=== PATIENT | female | born 2000 | race African-American/Black ===

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

== ENCOUNTER 2018-02-25 06:29 | Emergency (ER) | payer MEDICAID ==
[2018-02-25] MEDS ORDERED: METOCLOPRAMIDE HCL 10 MG TABLET PO ONE (06:48)
--- NOTE | 2018-02-25 06:48 | ER Document Report ---
ED General - General Chief Complaint: Nausea/Vomiting Stated Complaint: NAUSEA Time Seen by Provider: 02/25/18 06:43 Mode of Arrival: Ambulatory Information source: Patient, Relative Notes: 17-year-old female history of Tourette's chronic episodes of nausea vomiting presents with complaints of nausea and vomiting. Patient denies any fevers or chills admits to chest pain. Patient has had similar chest pain past. Patient notes that due to her anxiety for which she has not been able to take any medications because it interacts with her Tourette's that she has not slept for 3 days TRAVEL OUTSIDE OF THE [place] IN LAST 30 DAYS: No - HPI Onset: Other - 3 days Onset/Duration: Persistent Quality of pain: Sharp Severity: Mild Pain Level: 1 Associated symptoms: Chest pain, Nausea, Vomiting, Other - insomnia Exacerbated by: Other - anxiety Relieved by: Denies Similar symptoms previously: Yes Recently seen / treated by doctor: Yes - Related Data Allergies/Adverse Reactions: erythromycin base [Erythromycin Base] Allergy (Mild, Verified 07/06/17 11:57) VOMITING amoxicillin trihydrate [From Augmentin] Adverse Reaction (Intermediate, Verified 07/06/17 11:57) numb Potassium Clavulanate * [From Augmentin] Adverse Reaction (Intermediate, Verified 07/06/17 11:57) numb aspirin [Aspirin] Adverse Reaction (Verified 07/06/17 11:57) steroids Allergy (Mild, Uncoded 01/05/15 06:54) rash Past Medical History - Social History Smoking Status: Never Smoker Cigarette use (# per day): No Chew tobacco use (# tins/day): No Smoking Education Provided: No Family History: CAD, COPD, CVA, DM, Hyperlipidemia, Hypertension. denies: Arthritis, Malignancy, Thyroid Disfunction Pulmonary Medical History: Reports: Hx Asthma Neurological Medical History: Reports: Hx Migraine. Denies: Hx Cerebrovascular Accident, Hx Seizures Renal/ Medical History: Denies: Hx Peritoneal Dialysis Musculoskeltal Medical History: Reports Hx Musculoskeletal Deformity Psychiatric Medical History: Reports: Hx Anxiety Past Surgical History: Reports: Hx Breast Surgery - reduction, Hx Tonsillectomy - Immunizations Immunizations up to date: Yes Hx Diphtheria, Pertussis, Tetanus Vaccination: Yes Review of Systems - Review of Systems Notes: REVIEW OF SYSTEMS: CONSTITUTIONAL : Denies fever, chills, or sweats. Denies recent illness. EENT: Denies eye, ear, throat, or mouth pain or symptoms. Denies nasal or sinus congestion or discharge. Denies throat, tongue, or mouth swelling or difficulty swallowing. CARDIOVASCULAR: Admits to sharp chest pains that move around RESPIRATORY: Denies cough, cold, or chest congestion. Denies shortness of breath, difficulty breathing, or wheezing. GASTROINTESTINAL: D admits nausea vomiting GENITOURINARY: Denies difficulty urinating, painful urination, burning, frequency, blood in urine, or discharge. FEMALE GENITOURINARY: Denies vaginal bleeding, heavy or abnormal periods, irregular periods. Denies vaginal discharge or odor. MUSCULOSKELETAL: Denies back or neck pain or stiffness. Denies joint pain or swelling. SKIN: Denies rash, lesions or sores. HEMATOLOGIC : Denies easy bruising or bleeding. LYMPHATIC: Denies swollen, enlarged glands. NEUROLOGICAL: Denies confusion or altered mental status. Denies passing out or loss of consciousness. Denies dizziness or lightheadedness. Denies headache. Denies weakness or paralysis or loss of use of either side. Denies problems with gait or speech. Denies sensory loss, numbness, or tingling. Denies seizures. PSYCHIATRIC: Admits to stress anxiety insomnia. ALL OTHER SYSTEMS REVIEWED AND NEGATIVE. PHYSICAL EXAMINATION: GENERAL: Obese female well-appearing no distress HEAD: Atraumatic, normocephalic. EYES: Pupils equal round and reactive to light, extraocular movements intact, conjunctiva are normal. ENT: Nares patent, oropharynx clear without exudates. Moist mucous membranes. NECK: Normal range of motion, supple without lymphadenopathy LUNGS: Breath sounds clear to auscultation bilaterally and equal. No wheezes rales or rhonchi. HEART: Regular rate and rhythm without murmurs ABDOMEN: Soft, nontender, nondistended abdomen. No guarding, no rebound. No masses appreciated. Female : deferred Musculoskeletal: Normal range of motion, no pitting or edema. No cyanosis. NEUROLOGICAL: Cranial nerves grossly intact. Normal speech, normal gait. Normal sensory, motor exams PSYCH: Anxious SKIN: Warm, Dry, normal turgor, no rashes or lesions noted. Dictation was performed using [employer] voice recognition software Physical Exam - Vital signs Vitals: Temp Pulse Resp BP Pulse Ox 98.3 F 90 18 127/106 H 97 02/25/18 06:38 06/08/18 06:38 02/25/18 06:38 02/25/18 06:38 02/25/18 06:38 Course - Re-evaluation Re-evalutation: 02/25/18 08:20 Patient's presentation most consistent with anxiety and stress reaction. She overall looks well is in no distress 02/25/18 09:27 Mental health evaluate the patient it appears she has run out of her clonidine which she takes daily, ever since she was off the clonidine that when her symptoms started. She did not express this information to me and would have saved quite a large amount of time had I known this After performing a Medical Screening Examination, I estimate there is LOW risk for ACUTE APPENDICITIS, BOWEL OBSTRUCTION, ACUTE CHOLECYSTITIS, PERFORATED DIVERTICULITIS, INCARCERATED HERNIA, PANCREATITIS, PELVIC INFLAMMATORY DISEASE, PERFORATED ULCER, ECTOPIC , or TUBO-OVARIAN ABSCESS, thus I consider the discharge disposition reasonable. Also, there is no evidence or peritonitis , sepsis, or toxicity. I have reevaluated this patient multiple times and no significant life threatening changes are noted. The patient and I have discussed the diagnosis and risks, and we agree with discharging home with close follow-up with the understanding that symptoms and presentations can change. We also discussed returning to the Emergency Department immediately if new or worsening symptoms occur. We have discussed the symptoms which are most concerning (e.g., bloody stool, fever, changing or worsening pain, vomiting) that necessitate immediate return. - Vital Signs Vital signs: Temp Pulse Resp BP Pulse Ox 98.3 F 90 18 127/106 H 97 02/25/18 06:38 02/25/18 06:38 02/25/18 06:38 02/25/18 06:38 02/25/18 06:38 Discharge - Discharge Clinical Impression: Anxiety Nausea & vomiting Qualifiers: Vomiting type: unspecified Vomiting Intractability: non-intractable Qualified Code(s): R11.2 - Nausea with vomiting, unspecified Condition: Stable Disposition: HOME, SELF-CARE Prescriptions: Clonidine HCl [Catapres] 0.1 mg PO DAILY #30 tablet Referrals: DIA FINLEY MD [ACTIVE STAFF] - Follow up as needed
[2018-02-25 08:49] LABS: APPEARANCE,URINE SLIGHTLY-CLOUDY; BILIRUBIN,URINE NEGATIVE (NEGATIVE); COLOR,URINE YELLOW; GLUCOSE, URINE NEGATIVE (NEGATIVE); KETONES,URINE NEGATIVE (NEGATIVE); LEUKOCYTE ESTERASE,URINE NEGATIVE (NEGATIVE); NITRITE,URINE NEGATIVE (NEGATIVE); PROTEIN,URINE NEGATIVE (NEGATIVE); URINE SPECIFIC GRAVITY 1.035; UROBILINOGEN,URINE NEGATIVE mg/dL (<2.0)
[2018-02-25 09:37] VITALS: BP 155/88
--- NOTE | 2018-02-25 21:44 | EKG REPORT ---
SEVERITY:- NORMAL ECG - SINUS RHYTHM : Confirmed by: Lorri Alfaro MD 25-Feb-2018 21:43:58
--- NOTE | 2018-02-26 12:17 | PSYCHOLOGICAL NOTE ---
Psych Note - Psych Note Psych Note: Reason for consult: anxiety Patient's grandmother at bedside per patient's request 17-year-old female history of Tourette's chronic episodes of nausea vomiting presents with complaints of nausea and vomiting. Patient denies any fevers or chills admits to chest pain. Patient has had similar chest pain past. Patient notes that due to her anxiety for which she has not been able to take any medications because it interacts with her Tourette's that she has not slept for 3 days. Patient disclosed that her anxiety has been very bad and she is able to sleep for 3 days. She confirms that she does not take any medication for Tourette's however does take clonidine at night to help her sleep. She reports that she ran out and confirms this coincides with all of her symptoms. Patient denies suicidal ideation. She has never has inpatient psychiatric treatment. Patient is alert and orientated to person, place, time and circumstance. Mood is euthymic with congruent affect patient smiling, laughing and engaging with clinician. Patient denies suicidal and homicidal ideation. Delusions are absent behaviors congruent with intact reality based presentation i.e. organized and linear thought process. Eye contact is well-maintained. Conversational speech was within normal rate, tone and prosody. Intellectual abilities appear to be within average range. Attention and concentration are good. Insight, judgment, impulse control are good. Diagnosis 300.00 (F41.9) unspecified anxiety disorder per history provided by patient 307.23 (F95.2) Tourette's disorder per history provided by patient impression/plan: Patient is cleared from acute psychiatric services. Patient discloses increased anxiety and being unable sleep however upon reflection realizes that coincides with running out of her clonidine. Patient takes clonidine to help her sleep at night. Patient denies suicidal and homicidal ideation behaviors congruent with an intact reality based presentation i.e. organized and linear thought processes. Dr. Martínez was consulted and the care management as patient; attending physician is agreement with her conditions and disposition.
== END 2018-02-25 09:30 | disposition home or self-care (01) ==
LOC: ER 06:29
DX: R11.2 Nausea with vomiting, unspecified (principal); F41.9 Anxiety disorder, unspecified; Z88.3 Allergy status to other anti-infective agents
CPT/HCPCS: 93005; 99285; 81025; 81001; 93010; J3490

== ENCOUNTER 2018-04-08 14:31 | Emergency (ER) | payer MEDICAID ==
[2018-04-08 14:40] VITALS: BP 123/81
--- NOTE | 2018-04-08 14:57 | ER Document Report ---
HPI - HPI Patient complains to provider of: Cough congestion wheeze Onset: Just prior to arrival Onset/Duration: Gradual Pain Level: 3 Context: 17-year-old female with cough and wheeze and congestion for almost 2 weeks. No chest pain or shortness of breath. She has sore throat and has had some fever but none today. Associated Symptoms: None Exacerbated by: Denies Relieved by: Other - Used her grandfathers albuterol nebulizer - ROS ROS below otherwise negative: Yes Systems Reviewed and Negative: Yes All other systems reviewed and negative - REPRODUCTIVE Reproductive: DENIES: : Past Medical History - General Information source: Patient - Social History Smoking Status: Never Smoker Frequency of alcohol use: None Drug Abuse: None Lives with: Family Family History: CAD, COPD, CVA, DM, Hyperlipidemia, Hypertension Pulmonary Medical History: Reports: Hx Asthma Neurological Medical History: Reports: Hx Migraine Renal/ Medical History: Denies: Hx Peritoneal Dialysis Musculoskeletal Medical History: Reports Hx Musculoskeletal Deformity Psychiatric Medical History: Reports: Hx Anxiety Past Surgical History: Reports: Hx Breast Surgery - reduction, Hx Tonsillectomy - Immunizations Immunizations up to date: Yes Hx Diphtheria, Pertussis, Tetanus Vaccination: Yes Vertical Provider Document - CONSTITUTIONAL Agree With Documented VS: Yes Exam Limitations: No Limitations General Appearance: No Apparent Distress Notes: Morbidly obese - INFECTION CONTROL TRAVEL OUTSIDE OF THE [place] IN LAST 30 DAYS: No - HEENT HEENT: Normocephalic, Pharyngeal Erythema. negative: Conjuctival Injection, Tympanic Membrane Red, Tympanic Membrane Bulging - NECK Neck: Supple. negative: Lymphadenopathy-Left, Lymphadenopathy-Right - RESPIRATORY Respiratory: No Respiratory Distress, Wheezing - Faint X laboratory wheeze bilateral with forced expiration - CARDIOVASCULAR Cardiovascular: Regular Rate, Regular Rhythm - GI/ABDOMEN Gastrointestinal: Abdomen Soft, Abdomen Non-Tender - NEURO Level of Consciousness: Alert - DERM Integumentary: No Rash Course - Vital Signs Vital signs: Temp Pulse Resp BP Pulse Ox 98.5 F 99 H 18 123/81 97 04/08/18 14:38 04/08/18 14:38 04/08/18 14:38 04/08/18 14:38 04/08/18 14:38 Discharge - Discharge Clinical Impression: Bronchitis Condition: Good Disposition: HOME, SELF-CARE Instructions: Antibiotic Therapy ([facility]), Bronchitis With Bronchospasm (Wheezing ) ([facility]), Inhaled Bronchodilators ([facility]) Additional Instructions: Drink plenty of fluids Use the metered-dose inhaler 2 puffs every 3 hours or the nebulizer 4 times a day during this illness See your doctor for follow-up Return to the emergency room if worsening symptoms Prescriptions: Albuterol Sulfate [Ventolin 0.083% Neb 2.5 mg/3 mL Ampul] 2.5 mg NEB Q3HP PRN # 25 vial PRN Reason: Albuterol Sulfate [Proair HFA Inhalation Aerosol 8.5 gm MDI] 2 puff IH Q3HP PRN #1 [id number] PRN Reason: Cefdinir [Omnicef 300 mg Capsule] 1 cap PO BID #20 capsule Referrals: MARTHA PIPER DO [NO LOCAL MD] - Follow up as needed
== END 2018-04-08 15:12 | disposition home or self-care (01) ==
LOC: ER 14:31
DX: J45.909 Unspecified asthma, uncomplicated (principal); R05 Cough; J02.9 Acute pharyngitis, unspecified
CPT/HCPCS: 99283

== ENCOUNTER 2018-05-31 07:20 | Emergency (ER) | payer MEDICAID ==
[2018-05-31 07:25] VITALS: BP 118/74
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
== END 2018-05-31 09:28 | disposition home or self-care (01) ==
LOC: ER 07:20
DX: J02.9 Acute pharyngitis, unspecified (principal); J45.909 Unspecified asthma, uncomplicated; Z88.1 Allergy status to other antibiotic agents; Z88.8 Allergy status to other drugs, medicaments and biological substances
CPT/HCPCS: 87070; 87880; 99283

== ENCOUNTER 2018-06-07 22:42 | Emergency (ER) | payer MEDICAID ==
[2018-06-07 22:48] VITALS: BP 141/77
--- NOTE | 2018-06-07 23:59 | ER Document Report ---
ED Medical Screen (RME) - General Chief Complaint: Ankle Pain Stated Complaint: HEADACHE Time Seen by Provider: 06/07/18 23:58 Mode of Arrival: Wheelchair Information source: Patient Notes: 17-year-old female presented to ED for multiple complaints. She states she has had vaginal bleeding for a month and it is not resolving. She states she has had a constant migraine for 2-3 weeks. She states she has a history of asthma and anxiety and has had chest discomfort for about 2 weeks. She states she was running and tripped and fell 2 days ago and not felt right since. Patient is alert and oriented respirations regular and on labored. She states she has a history of Tourette's and has had a tick for about a month now. I have greeted and performed a rapid initial assessment of this patient. A comprehensive ED assessment and evaluation of the patient, analysis of test results and completion of medical decision making process will be conducted by an additional ED providers. TRAVEL OUTSIDE OF THE [place] IN LAST 30 DAYS: No - Related Data Allergies/Adverse Reactions: erythromycin base [Erythromycin Base] Allergy (Mild, Verified 05/31/18 07:21) VOMITING amoxicillin trihydrate [From Augmentin] Adverse Reaction (Intermediate, Verified 05/31/18 07:21) numb Potassium Clavulanate * [From Augmentin] Adverse Reaction (Intermediate, Verified 05/31/18 07:21) numb aspirin [Aspirin] Adverse Reaction (Verified 05/31/18 07:21) steroids Allergy (Mild, Uncoded 05/31/18 07:21) rash Past Medical History Pulmonary Medical History: Reports: Hx Asthma Neurological Medical History: Reports: Hx Migraine. Denies: Hx Cerebrovascular Accident, Hx Seizures Renal/ Medical History: Denies: Hx Peritoneal Dialysis Musculoskeltal Medical History: Reports Hx Musculoskeletal Deformity Psychiatric Medical History: Reports: Hx Anxiety Past Surgical History: Reports: Hx Breast Surgery - reduction, Hx Tonsillectomy - Immunizations Immunizations up to date: Yes Hx Diphtheria, Pertussis, Tetanus Vaccination: Yes Physical Exam - Vital signs Vitals: Temp Pulse Resp BP Pulse Ox 98.9 F 93 H 20 141/77 H 97 06/07/18 22:42 06/07/18 22:42 06/07/18 22:42 06/07/18 22:42 06/07/18 22:42 Course - Vital Signs Vital signs: Temp Pulse Resp BP Pulse Ox 98.9 F 93 H 20 141/77 H 97 06/07/18 22:42 06/07/18 22:42 06/07/18 22:42 06/07/18 22:42 06/07/18 22:42
[2018-06-08 00:48] LABS: ABSOLUTE EOSINOPHILS # (AUTO) 0.1 10^3/uL (0.0-0.6); ABSOLUTE LYMPHOCYTES (AUTO) 2.9 10^3/uL (0.5-4.7); ABSOLUTE MONOCYTES (AUTO) 0.4 10^3/uL (0.1-1.4); ABSOLUTE NEUT (AUTO) 4.5 10^3/uL (1.7-8.2); BASOPHILS % (AUTO) 0.5 % (0-2); EOSINOPHILS % (AUTO) 1.5 % (0-6); HEMATOCRIT 39.9 % (36.0-47.0); HEMOGLOBIN 13.5 g/dL (12.0-15.5); LYMPHOCYTES % (AUTO) 35.9 % (13-45); MEAN CORPUSCULAR HEMOGLOBIN 28.3 pg (27.0-33.4); MEAN CORPUSCULAR HGB CONC 33.8 g/dL (32.0-36.0); MEAN CORPUSCULAR VOLUME 84 fl (80-97); MONOCYTES % (AUTO) 5.6 % (3-13); PLATELET COUNT 430 10^3/uL (150-450); RED BLOOD COUNT 4.77 10^6/uL (3.72-5.28); RED CELL DISTRIBUTION WIDTH 13.4 % (11.5-14.0); SEGMENTED NEUTROPHILS % (AUTO) 56.5 % (42-78); TOTAL CELLS COUNTED % (AUTO) 100 %
== END 2018-06-08 04:00 | disposition left against medical advice (07) ==
LOC: ER 22:42
DX: G43.909 Migraine, unspecified, not intractable, without status migrainosus (principal); N93.9 Abnormal uterine and vaginal bleeding, unspecified; J45.909 Unspecified asthma, uncomplicated; Z88.1 Allergy status to other antibiotic agents; Z88.6 Allergy status to analgesic agent; Z53.20 Procedure and treatment not carried out because of patient's decision for unspecified reasons
CPT/HCPCS: 36415; 81025; 85025; 99281

== ENCOUNTER 2018-07-03 08:25 | Emergency (ER) | payer MEDICAID ==
--- NOTE | 2018-07-03 09:13 | ER Document Report ---
ED Medical Screen (RME) - General Chief Complaint: Vaginal Bleeding Stated Complaint: VAGINAL BLEEDING, ABDOMINAL PAIN Notes: Patient is a 17-year-old female that presents to the emergency department for chief complaint of vaginal bleeding. Patient reports is been having this bleeding for about 3 months now. She is on the Depo-Provera shot, which she received on May 17, but she was having bleeding prior to that. She states that it is heavy bleeding on a daily basis and she did not have this issue in the past. She has had some lightheadedness, but no syncope, admits to nausea but no vomiting. Denies urinary symptoms. She is not due for her next echo shot until next month. She saw her PCP over the course of last week, without any treatment, and that is why she came today. ROS: GENERAL: Denies fever or chills CV: Denies chest pain PHYSICAL EXAMINATION: Vital signs reviewed. GENERAL: Well-appearing, well-nourished and in no acute distress. HEAD: Atraumatic, normocephalic. EYES: Pupils equal round extraocular movements intact, conjunctiva are normal. ENT: Nares patent NECK: Normal range of motion CV: Heart regular rate and rhythm LUNGS: No respiratory distress Musculoskeletal: Normal range of motion NEUROLOGICAL: Normal speech PSYCH: Normal mood, normal affect. MDM: Patient seen and examined for rapid initial assessment. Vital signs reviewed. A comprehensive ED assessment and evaluation of the patient, analysis of test results and completion of the medical decision making process will be conducted by additional ED providers. *Note is created using voice recognition software and may contain spelling, syntax or grammatical errors. TRAVEL OUTSIDE OF THE [place] IN LAST 30 DAYS: No - Related Data Allergies/Adverse Reactions: erythromycin base [Erythromycin Base] Allergy (Mild, Verified 05/31/18 07:21) VOMITING amoxicillin trihydrate [From Augmentin] Adverse Reaction (Intermediate, Verified 05/31/18 07:21) numb Potassium Clavulanate * [From Augmentin] Adverse Reaction (Intermediate, Verified 05/31/18 07:21) numb aspirin [Aspirin] Adverse Reaction (Verified 05/31/18 07:21) steroids Allergy (Mild, Uncoded 05/31/18 07:21) rash Past Medical History Pulmonary Medical History: Reports: Hx Asthma Neurological Medical History: Reports: Hx Migraine. Denies: Hx Cerebrovascular Accident, Hx Seizures Renal/ Medical History: Denies: Hx Peritoneal Dialysis Musculoskeltal Medical History: Reports Hx Musculoskeletal Deformity Psychiatric Medical History: Reports: Hx Anxiety Past Surgical History: Reports: Hx Breast Surgery - reduction, Hx Tonsillectomy - Immunizations Immunizations up to date: Yes Hx Diphtheria, Pertussis, Tetanus Vaccination: Yes Physical Exam - Vital signs Vitals: Temp Pulse Resp BP Pulse Ox 98.6 F 70 18 127/57 H 98 07/03/18 08:52 07/03/18 08:52 07/03/18 08:52 07/03/18 08:52 07/03/18 08:52 Course - Vital Signs Vital signs: Temp Pulse Resp BP Pulse Ox 98.6 F 70 18 127/57 H 98 07/03/18 08:52 07/03/18 08:52 07/03/18 08:52 07/03/18 08:52 07/03/18 08:52
[2018-07-03 09:53] LABS: ABSOLUTE EOSINOPHILS # (AUTO) 0.2 10^3/uL (0.0-0.6); ABSOLUTE LYMPHOCYTES (AUTO) 2.8 10^3/uL (0.5-4.7); ABSOLUTE MONOCYTES (AUTO) 0.3 10^3/uL (0.1-1.4); ABSOLUTE NEUT (AUTO) 2.4 10^3/uL (1.7-8.2); BASOPHILS % (AUTO) 0.4 % (0-2); EOSINOPHILS % (AUTO) 3.5 % (0-6); HEMATOCRIT 38.2 % (36.0-47.0); HEMOGLOBIN 12.9 g/dL (12.0-15.5); LYMPHOCYTES % (AUTO) 48.8 % (13-45); MEAN CORPUSCULAR HEMOGLOBIN 28.6 pg (27.0-33.4); MEAN CORPUSCULAR HGB CONC 33.7 g/dL (32.0-36.0); MEAN CORPUSCULAR VOLUME 85 fl (80-97); MONOCYTES % (AUTO) 5.9 % (3-13); PLATELET COUNT 393 10^3/uL (150-450); RED BLOOD COUNT 4.51 10^6/uL (3.72-5.28); RED CELL DISTRIBUTION WIDTH 13.7 % (11.5-14.0); SEGMENTED NEUTROPHILS % (AUTO) 41.4 % (42-78); TOTAL CELLS COUNTED % (AUTO) 100 %; WHITE BLOOD COUNT 5.8 10^3/uL (4.0-10.5)
[2018-07-03 10:03] LABS: APPEARANCE,URINE SLIGHTLY-CLOUDY; BILIRUBIN,URINE NEGATIVE (NEGATIVE); COLOR,URINE YELLOW; GLUCOSE, URINE NEGATIVE (NEGATIVE); KETONES,URINE NEGATIVE (NEGATIVE); LEUKOCYTE ESTERASE,URINE NEGATIVE (NEGATIVE); NITRITE,URINE NEGATIVE (NEGATIVE); PROTEIN,URINE NEGATIVE (NEGATIVE); URINE SPECIFIC GRAVITY 1.013; UROBILINOGEN,URINE NEGATIVE mg/dL (<2.0)
[2018-07-03 10:20] LABS: ALANINE AMINOTRANSFERASE 25 U/L (5-35); ALBUMIN 4.1 g/dL (3.7-5.6); ALKALINE PHOSPHATASE 53 U/L (50-135); ANION GAP 11 (5-19); ASPARTATE AMINO TRANSFERASE 21 U/L (5-30); BILIRUBIN,DIRECT 0.1 mg/dL (0.0-0.4); BILIRUBIN,TOTAL 0.5 mg/dL (0.2-1.3); BLOOD UREA NITROGEN 6 mg/dL (7-20); CALCIUM 9.6 mg/dL (8.4-10.2); CARBON DIOXIDE 22 mmol/L (22-30); CHLORIDE 108 mmol/L (98-107); GLUCOSE 106 mg/dL (75-110); POTASSIUM 4.3 mmol/L (3.6-5.0); SODIUM 140.6 mmol/L (137-145); TOTAL PROTEIN 7.4 g/dL (6.3-8.2)
[2018-07-03 10:23] LABS: BACTERIA (WET MOUNT) 3+ BACTERIA SEEN; EPITHELIALS (WET MOUNT) 3+ EPITHELIALS SEEN; RBCS (WET MOUNT) RARE RBCS SEEN; T.VAGINALIS (WET MOUNT) NO TRICHOMONAS SEEN; WBCS (WET MOUNT) 2+ WBCS SEEN; YEAST (WET MOUNT) NO YEAST SEEN
[2018-07-03] MEDS ORDERED: IBUPROFEN 800 MG TABLET PO ONE (10:25)
--- NOTE | 2018-07-03 10:27 | ER Document Report ---
ED GI/ - General Chief Complaint: Vaginal Bleeding Stated Complaint: VAGINAL BLEEDING, ABDOMINAL PAIN Time Seen by Provider: 07/03/18 09:27 Mode of Arrival: Ambulatory Information source: Patient Notes: Patient presents complaining of a 3-month history of daily vaginal bleeding. Patient states that the bleeding is light during the day and increases during the evening time. Patient states she does have occasional thoughts. Patient does report nausea but denies any vomiting. Patient denies any syncope or lightheadedness. Patient has seen her primary doctor twice for the same complaint recently. TRAVEL OUTSIDE OF THE [place] IN LAST 30 DAYS: No - HPI Patient complains to provider of: Vaginal bleeding. No: Vomiting Timing/Duration: Persistent Quality of pain: No pain Vaginal bleeding (Compared to normal period): Similar Menstrual period history: denies: Sexual history: Inactive Associated symptoms: denies: Dysuria, Fever, Nausea, Urinary hesitancy, Urinary frequency, Urinary retention, Vaginal discharge, Vomiting Exacerbated by: Denies Relieved by: Denies Similar symptoms previously: Yes Recently seen / treated by doctor: Yes - Related Data Allergies/Adverse Reactions: erythromycin base [Erythromycin Base] Allergy (Mild, Verified 05/31/18 07:21) VOMITING amoxicillin trihydrate [From Augmentin] Adverse Reaction (Intermediate, Verified 05/31/18 07:21) numb Potassium Clavulanate * [From Augmentin] Adverse Reaction (Intermediate, Verified 05/31/18 07:21) numb aspirin [Aspirin] Adverse Reaction (Verified 05/31/18 07:21) steroids Allergy (Mild, Uncoded 05/31/18 07:21) rash Past Medical History - General Information source: Patient - Social History Smoking Status: Never Smoker Frequency of alcohol use: None Drug Abuse: None Occupation: None Lives with: Family Family History: CAD, COPD, CVA, DM, Hyperlipidemia, Hypertension Patient has suicidal ideation: No Patient has homicidal ideation: No Pulmonary Medical History: Reports: Hx Asthma Neurological Medical History: Reports: Hx Migraine. Denies: Hx Cerebrovascular Accident, Hx Seizures Renal/ Medical History: Denies: Hx Peritoneal Dialysis Musculoskeletal Medical History: Reports Hx Musculoskeletal Deformity Psychiatric Medical History: Reports: Hx Anxiety, Other - Tourette's Past Surgical History: Reports: Hx Breast Surgery - reduction, Hx Tonsillectomy - Immunizations Immunizations up to date: Yes Hx Diphtheria, Pertussis, Tetanus Vaccination: Yes Review of Systems - Review of Systems Constitutional: No symptoms reported. denies: Fever, Recent illness EENT: No symptoms reported Cardiovascular: No symptoms reported. denies: Dizziness, Lightheaded Respiratory: No symptoms reported. denies: Cough Gastrointestinal: No symptoms reported. denies: Nausea, Vomiting Genitourinary: No symptoms reported. denies: Dysuria Female Genitourinary: Vaginal bleeding. denies: , Vaginal discharge Musculoskeletal: No symptoms reported. denies: Back pain Skin: No symptoms reported Hematologic/Lymphatic: No symptoms reported Neurological/Psychological: No symptoms reported Physical Exam - Vital signs Vitals: Temp Pulse Resp BP Pulse Ox 98.6 F 70 18 127/57 H 98 07/03/18 08:52 07/03/18 08:52 07/03/18 08:52 07/03/18 08:52 07/03/18 08:52 - General General appearance: Appears well, Alert In distress: None - HEENT Head: Normocephalic, Atraumatic Eyes: Normal Conjunctiva: Normal Nasal: Normal Mouth/Lips: Normal Mucous membranes: Normal Neck: Normal, Supple. No: Lymphadenopathy - Respiratory Respiratory status: No respiratory distress Chest status: Nontender Breath sounds: Normal. No: Rales, Rhonchi, Stridor, Wheezing Chest palpation: Normal - Cardiovascular Rhythm: Regular Heart sounds: S1 appreciated, S2 appreciated Murmur: No - Abdominal Inspection: Morbidly Obese Distension: No distension Bowel sounds: Normal Tenderness: Nontender Organomegaly: No organomegaly - Genitourinary External exam: Normal Speculum exam: Cervix closed Vaginal bleeding: Mild - old appearing brown colored blood - Back Back: Normal, Nontender. No: CVA tenderness - Extremities General upper extremity: Normal inspection, Normal strength General lower extremity: Normal inspection, Normal strength - Neurological Neuro grossly intact: Yes Cognition: Normal [place] Coma Scale Eye Opening: Spontaneous [place] Coma Scale Verbal: Oriented Abby Coma Scale Motor: Obeys Commands [place] Coma Scale Total: 15 - Psychological Associated symptoms: Normal affect, Normal mood - Skin Skin Temperature: Warm Skin Moisture: Dry Skin Color: Normal Course - Re-evaluation Re-evalutation: 07/03/18 11:45 Patient hemodynamically stable without any evidence of anemia. Patient with no heavy active bleeding. Only old appearing blood noted on pelvic examination. Will start patient on naproxen and encourage outpatient follow-up with a minilab operator for further evaluation of irregular vaginal bleeding. - Vital Signs Vital signs: Temp Pulse Resp BP Pulse Ox 98.5 F 69 18 107/51 L 98 07/03/18 11:57 07/03/18 11:57 07/03/18 11:57 07/03/18 11:57 07/03/18 11:57 - Laboratory Result Diagrams: 07/03/18 09:33 07/03/18 09:33 Laboratory results interpreted by me: 07/03/18 07/03/18 07/03/18 09:25 09:33 09:33 Seg Neutrophils % 41.4 L Lymphocytes % 48.8 H Chloride 108 H BUN 6 L Urine Blood MODERATE H 07/03/18 11:45 Labs- Entire Visit 07/03/18 07/03/18 07/03/18 09:25 09:33 09:33 WBC 5.8 RBC 4.51 Hgb 12.9 Hct 38.2 MCV 85 MCH 28.6 MCHC 33.7 RDW 13.7 Plt Count 393 Seg Neutrophils % 41.4 L Lymphocytes % 48.8 H Monocytes % 5.9 Eosinophils % 3.5 Basophils % 0.4 Absolute Neutrophils 2.4 Absolute Lymphocytes 2.8 Absolute Monocytes 0.3 Absolute Eosinophils 0.2 Absolute Basophils 0.0 Sodium 140.6 Potassium 4.3 Chloride 108 H Carbon Dioxide 22 Anion Gap 11 BUN 6 L Creatinine 0.80 Est GFR ( Amer) > 60 Est GFR (Non-Af Amer) > 60 Glucose 106 Calcium 9.6 Total Bilirubin 0.5 Direct Bilirubin 0.1 Neonat Total Bilirubin Not Reportable Neonat Direct Bilirubin Not Reportable Neonat Indirect Bili Not Reportable AST 21 ALT 25 Alkaline Phosphatase 53 Total Protein 7.4 Albumin 4.1 Urine Color YELLOW Urine Appearance SLIGHTLY-CLOUDY Urine pH 5.0 Ur Specific [place] 1.013 Urine Protein NEGATIVE Urine Glucose (UA) NEGATIVE Urine Ketones NEGATIVE Urine Blood MODERATE H Urine Nitrite NEGATIVE Urine Bilirubin NEGATIVE Urine Urobilinogen NEGATIVE Ur Leukocyte Esterase NEGATIVE Urine WBC (Auto) 1 Urine RBC (Auto) 1 Squamous Epi Cells Auto 2 Urine Mucus (Auto) RARE Urine Ascorbic Acid NEGATIVE Urine HCG, Qual NEGATIVE Epi Cells (Wet Prep) Bacteria (Wet Prep) Trichomonas (Wet Prep) Vaginal WBC Vaginal RBC Vaginal Yeast 07/03/18 10:10 WBC RBC Hgb Hct MCV MCH MCHC RDW Plt Count Seg Neutrophils % Lymphocytes % Monocytes % Eosinophils % Basophils % Absolute Neutrophils Absolute Lymphocytes Absolute Monocytes Absolute Eosinophils Absolute Basophils Sodium Potassium Chloride Carbon Dioxide Anion Gap BUN Creatinine Est GFR ( Amer) Est GFR (Non-Af Amer) Glucose Calcium Total Bilirubin Direct Bilirubin Neonat Total Bilirubin Neonat Direct Bilirubin Neonat Indirect Bili AST ALT Alkaline Phosphatase Total Protein Albumin Urine Color Urine Appearance Urine pH Ur Specific [place] Urine Protein Urine Glucose (UA) Urine Ketones Urine Blood Urine Nitrite Urine Bilirubin Urine Urobilinogen Ur Leukocyte Esterase Urine WBC (Auto) Urine RBC (Auto) Squamous Epi Cells Auto Urine Mucus (Auto) Urine Ascorbic Acid Urine HCG, Qual Epi Cells (Wet Prep) 3+ EPITHELIALS SEEN Bacteria (Wet Prep) 3+ BACTERIA SEEN Trichomonas (Wet Prep) NO TRICHOMONAS SEEN Vaginal WBC 2+ WBCS SEEN Vaginal RBC RARE RBCS SEEN Vaginal Yeast NO YEAST SEEN - Diagnostic Test Radiology reviewed: Reports reviewed Discharge - Discharge Clinical Impression: Vagina bleeding Condition: Stable Disposition: HOME, SELF-CARE Instructions: Anti-Inflammatory Medication ([facility]), Vaginal Bleeding ([facility]) Additional Instructions: Return immediately for any new or worsening symptoms Followup with your primary care provider, call tomorrow to make a followup appointment Follow-up with minilab operator for further evaluation of vaginal bleeding Prescriptions: Naproxen [Naprosyn 250 Nmg Tablet] 1 tab PO BID #14 tablet Referrals: [facility] [Provider Group] - Follow up in 3-5 days
--- NOTE | 2018-07-03 11:29 | RADIOLOGY REPORT (SQ) ---
EXAM DESCRIPTION: U/S NON OB PEL TV W/DOPPLER COMPLETED DATE/TIME: 07/03/2018 11:05 am REASON FOR STUDY: vaginal bleeding COMPARISON: None. TECHNIQUE: Dynamic and static grayscale images acquired of the pelvis via transabdominal approach an d recorded on PACS. Additional selected color Doppler and spectral images recorded. LIMITATIONS: Body habitus and overlying bowel gas. FINDINGS: UTERUS: Contour normal. No mass. ENDOMETRIAL STRIPE: No focal or generalized thickening. No masses. CERVIX: No nabothian cysts. RIGHT OVARY AND DOPPLER: Normal size. No worrisome masses. Normal arterial vascular flow without evid ence for torsion. LEFT OVARY AND DOPPLER: Ovary not visualized. FREE FLUID: None noted. OTHER: No other significant finding. MEASUREMENTS: UTERUS: 6.0 x 3.5 x 4.5 cm ENDOMETRIAL STRIPE: 3 mm RIGHT OVARY: 3.1 x 3.1 x 2.4 cm LEFT OVARY: Not visualized. IMPRESSION: NORMAL PELVIC ULTRASOUND BY TRANSABDOMINAL TECHNIQUE. TECHNICAL DOCUMENTATION: JOB ID: [id number] [employer]- All Rights Reserved Rev Reading location - IP/workstation name: [email or web address]
[2018-07-03 11:54] LABS: CHLAM PCR NOT DETECTED (NOT DETECT); GON PCR NOT DETECTED (NOT DETECT)
[2018-07-03 11:58] VITALS: BP 107/51
== END 2018-07-03 12:00 | disposition home or self-care (01) ==
LOC: ER 08:25
DX: N93.9 Abnormal uterine and vaginal bleeding, unspecified (principal); R11.0 Nausea; J45.909 Unspecified asthma, uncomplicated
CPT/HCPCS: 99284; 36415; 87210; 85025; 81025; 80053; 81001; 87491; 87591; 76830; 93976; J3490

== ENCOUNTER 2018-09-01 16:10 | Emergency (ER) | payer MEDICAID ==
--- NOTE | 2018-09-01 17:38 | ER Document Report ---
ED Flu Like - General Chief Complaint: Flu Symptoms Stated Complaint: FLU LIKE SYMPTOMS Time Seen by Provider: 09/01/18 17:22 Mode of Arrival: Ambulatory Information source: Patient Notes: 18-year-old female presented to ED for cough cold congestion body aches nausea with vomiting states she has had intermittent fevers for 3 months. States she was seen here 3 months ago for similar symptoms and did not get any treatment. While patient states she is not able to keep anything down she is drinking a Dr. Pepper and a Pepsi both. Patient stated that this she does not smoke cigarettes or drink alcohol but she does use pot for her Tourette's syndrome as she was told in [place] that it would help her symptoms. She states she also has a history of anxiety depression and bipolar. She also states that she has asthma and has been using her neb treatments and inhaler all day. Patient states she is not eating due to the nausea and she has not been able to sleep. TRAVEL OUTSIDE OF THE [place] IN LAST 30 DAYS: No - HPI Onset: Other - 3 months Timing/Duration: Intermittent Quality of pain: Achy Severity: Moderate Pain Level: 2 CO exposure: No Associated symptoms: Body/muscle aches, Chills, Nonproductive cough, Fever, Nausea, Vomiting, Rhinnorhea, Sinus pain/drainage, Shortness of breath, Sore throat Similar symptoms previously: Yes Recently seen / treated by doctor: Yes - Related Data Allergies/Adverse Reactions: erythromycin base [Erythromycin Base] Allergy (Mild, Verified 09/01/18 16:16) VOMITING amoxicillin trihydrate [From Augmentin] Adverse Reaction (Intermediate, Verified 09/01/18 16:16) numb Potassium Clavulanate * [From Augmentin] Adverse Reaction (Intermediate, Verified 09/01/18 16:16) numb aspirin [Aspirin] Adverse Reaction (Verified 09/01/18 16:16) steroids Allergy (Mild, Uncoded 09/01/18 16:16) rash Past Medical History - General Information source: Patient - Social History Smoking Status: Never Smoker Cigarette use (# per day): No Chew tobacco use (# tins/day): No Smoking Education Provided: No Frequency of alcohol use: None Drug Abuse: Marijuana Lives with: Grandparent(s) Family History: CAD, COPD, CVA, DM, Hyperlipidemia, Hypertension Patient has suicidal ideation: No Patient has homicidal ideation: No - Past Medical History Cardiac Medical History: Reports: None Pulmonary Medical History: Reports: Hx Asthma EENT Medical History: Reports: None Neurological Medical History: Reports: Hx Migraine Endocrine Medical History: Reports: None Renal/ Medical History: Reports: None Malignancy Medical History: Reports: None GI Medical History: Reports: None Skin Medical History: Reports None Psychiatric Medical History: Reports: Hx Anxiety, Hx Bipolar Disorder, Hx Depression, Other - Tourette's Traumatic Medical History: Reports: None Infectious Medical History: Reports: None Past Surgical History: Reports: Hx Breast Surgery - reduction, Hx Nose Surgery - Sinus surgery, Hx Tonsillectomy - Immunizations Immunizations up to date: Yes Hx Diphtheria, Pertussis, Tetanus Vaccination: Yes Review of Systems - Review of Systems Constitutional: Chills, Fever, Recent illness EENT: Nose congestion, Nose discharge, Sinus pressure, Sinus discharge, Throat pain Respiratory: Cough, Wheezing Gastrointestinal: Nausea, Vomiting Genitourinary: No symptoms reported Female Genitourinary: No symptoms reported Musculoskeletal: Other - Body aches Skin: No symptoms reported Hematologic/Lymphatic: No symptoms reported Neurological/Psychological: No symptoms reported -: Yes All other systems reviewed and negative Physical Exam - Vital signs Vitals: Temp Pulse Resp BP Pulse Ox 99.3 F 110 H 20 146/74 H 98 09/01/18 16:19 09/01/18 16:19 09/01/18 16:19 09/01/18 16:19 09/01/18 16:19 Interpretation: Normal - General General appearance: Appears well, Alert - HEENT Head: Normocephalic, Atraumatic Eyes: Normal Pupils: PERRL Ears: Normal External canal: Normal Tympanic membrane: Normal Nasal: Purulent discharge, Swelling Mouth/Lips: Normal Mucous membranes: Normal, Moist Pharynx: Post nasal drainage. No: Erythema, Exudate, Peritonsillar abscess, Retropharyngeal abscess, Tonsillar hypertrophy, Uvular edema, Potential airway comprom. Neck: Normal - Respiratory Respiratory status: No respiratory distress Chest status: Nontender Breath sounds: Normal, Nonproductive cough. No: Rales, Rhonchi, Stridor, Wheezing Chest palpation: Normal - Cardiovascular Rhythm: Regular Heart sounds: Normal auscultation Murmur: No - Abdominal Inspection: Normal Distension: No distension Bowel sounds: Normal Tenderness: Nontender Organomegaly: No organomegaly - Back Back: Normal, Nontender - Extremities General upper extremity: Normal inspection, Nontender, Normal color, Normal ROM , Normal temperature General lower extremity: Normal inspection, Nontender, Normal color, Normal ROM , Normal temperature, Normal weight bearing. No: Emeli's sign - Neurological Neuro grossly intact: Yes Cognition: Normal Orientation: AAOx4 [place] Coma Scale Eye Opening: Spontaneous Abby Coma Scale Verbal: Oriented [place] Coma Scale Motor: Obeys Commands [place] Coma Scale Total: 15 Speech: Normal Motor strength normal: LUE, RUE, LLE, RLE Sensory: Normal - Psychological Associated symptoms: Normal affect, Normal mood - Skin Skin Temperature: Warm Skin Moisture: Dry Skin Color: Normal Course - Re-evaluation Re-evalutation: 09/01/18 21:21 Assessment consistent with an upper respiratory infection. Patient states she has had nausea and vomiting off and on for 3 months as well as body aches cough congestion intermittent fevers. Patient states she has been using her nebulizer and inhaler today. After performing a Medical Screening Examination, I estimate there is LOW risk for ACUTE CORONARY SYNDROME, RESPIRATORY FAILURE, SEPSIS OR MENINGITIS, thus I consider the discharge disposition reasonable. I have reevaluated this patient multiple times and no significant life threatening changes are noted. The patient and I have discussed the diagnosis and risks, and we agree with discharging home with close follow-up. We also discussed returning to the Emergency Department immediately if new or worsening symptoms occur. We have discussed the symptoms which are most concerning (e.g., changing or worsening pain, trouble swallowing or breathing, neck stiffness, fever) that necessitate immediate return. - Vital Signs Vital signs: Temp Pulse Resp BP Pulse Ox 100.6 F H 104 H 20 142/88 H 98 09/01/18 19:11 09/01/18 19:11 09/01/18 16:19 09/01/18 19:11 09/01/18 19:11 - Laboratory Laboratory results interpreted by me: 09/01/18 16:58 Urine Blood SMALL H - Diagnostic Test Radiology reviewed: Image reviewed, Reports reviewed Discharge - Discharge Clinical Impression: URI (upper respiratory infection) Qualifiers: URI type: unspecified URI Qualified Code(s): J06.9 - Acute upper respiratory infection, unspecified Nausea & vomiting Qualifiers: Vomiting type: unspecified Vomiting Intractability: non-intractable Qualified Code(s): R11.2 - Nausea with vomiting, unspecified Condition: Stable Disposition: HOME, SELF-CARE Additional Instructions: UPPER RESPIRATORY ILLNESS: You have a viral infection of the respiratory passages -- a "cold." This common infection causes nasal congestion, drainage, and often sore throat and cough. It is highly contagious. The disease usually lasts about 10 to 14 days. There is no "cure" for the viral infection -- it must run its course. If there is a complication, such as bacterial infection in the nose, sinuses, middle ear, or bronchial tubes, antibiotics may be required. The antibiotics won't affect the virus. Drink plenty of fluids. A humidifier may help. An expectorant medication or decongestant may make you more comfortable. Use acetaminophen or ibuprofen for fever or aches. See the doctor if fever persists over two days, if there is any significant worsening of your symptoms, or if you simply fail to improve as expected. Vomiting Vomiting can be part of many illnesses. Most cases of vomiting are due to gastroenteritis, usually a viral infection in the intestinal tract. There is no specific treatment. The disease will end by itself. For now, the main danger to your child is dehydration. During the first few hours of the illness, give clear liquids, such as Pedialyte. Try to give small quantities frequently, such as a teaspoon of liquid every minute or about an ounce of fluids every five to ten minutes. Medications may be prescribed by the physician for special cases. After an hour or two of fluids without vomiting, add rice cereal, toast, applesauce, or bananas and other more solid foods to the clear liquids. Call the physician or go to the hospital if vomiting increases or blood appears in the bowel movement or vomitus; if your child fails to improve, or if signs of dehydration occur (no wet diapers for eight to twelve hours, tongue and mouth become dry, not acting as alert as usual). Antinausea Medication You have been given a medication to suppress nausea and vomiting. This type of medication can be given as a shot, pill, or suppository. It will usually last for many hours. Pills and shots usually last six to eight hours, suppositories last about 12 hours. For the typical illness, only one or two doses of the medication may be necessary. Mild lightheadedness may occur. This type of medicine can cause drowsiness. Do not drive or operate dangerous machinery while under its influence. Do not mix with alcohol. See your doctor at once if you have muscle spasms or tightness, or uncontrollable motions (particularly of the neck, mouth, or jaw). Persistent vomiting or severe lightheadedness should also be evaluated by the physician. Please try Flonase nasal spray which is [id number] use as according to the box instructions. You can also gargle with warm salt and soda solution for your sore throat. Your body aches you can use Tylenol or Motrin which is over- the-counter. I have written a prescription for some nausea medicine for your nausea and vomiting. And you will need to follow-up with your primary care doctor in the next 3-5 days if your symptoms continue. USE OF ACETAMINOPHEN (Tylenol): Acetaminophen may be taken for pain relief or fever control. It's much safer than aspirin, offering a wider range of "safe" dosages. It is safe during . Some brand names are Tylenol, Panadol, Datril, Anacin 3, Tempra, and Liquiprin. Acetaminophen can be repeated every four hours. The following are maximum recommended dosages: >89 pounds or adults 650 mg to 900 mg Acetaminophen can be repeated every four hours. Maximum dose not to exceed 4000 mg a day. SMOKING: I know you said you do not smoke cigarettes but there is something that you smoke that is also affecting your lungs. If you smoke, you should stop smoking. The tar and chemicals in cigarette smoke are harmful. Smoking has been shown to cause: emphysema chronic bronchitis lung cancer mouth and throat cancer stomach and pancreas cancer premature aging defects In addition, smoking increases ear and lung infections in children of smokers. FOLLOW-UP CARE: If you have been referred to a physician for follow-up care, call the physician s office for an appointment as you were instructed or within the next two days. If you experience worsening or a significant change in your symptoms, notify the physician immediately or return to the Emergency Department at any time for re-evaluation. Prescriptions: Ondansetron [Zofran Odt 4 mg Tablet] 1 tab PO Q6H #15 tab.rapdis Forms: Elevated Blood Pressure, Smoking Cessation Education Referrals: EPPERLY,FÉLIX T, MD [Primary Care Provider] - Follow up in 3-5 days
--- NOTE | 2018-09-01 18:14 | RADIOLOGY REPORT (SQ) ---
EXAM DESCRIPTION: CHEST 2 VIEWS COMPLETED DATE/TIME: 09/01/2018 6:06 pm REASON FOR STUDY: cough congestion COMPARISON: 10/02/2017 EXAM PARAMETERS: NUMBER OF VIEWS: two views TECHNIQUE: Digital Frontal and Lateral radiographic views of the chest acquired. RADIATION DOSE: NA LIMITATIONS: none FINDINGS: LUNGS AND PLEURA: No opacities, masses or pneumothorax. No pleural effusion. MEDIASTINUM AND HILAR STRUCTURES: No masses or contour abnormalities. HEART AND VASCULAR STRUCTURES: Heart normal size. No evidence for failure. BONES: No acute findings. HARDWARE: None in the chest. OTHER: No other significant finding. IMPRESSION: NO ACUTE RADIOGRAPHIC FINDING IN THE CHEST. TECHNICAL DOCUMENTATION: JOB ID: [id number] [employer]- All Rights Reserved Reading location - IP/workstation name: [email or web address]
[2018-09-01 18:36] LABS: APPEARANCE,URINE SLIGHTLY-CLOUDY; BILIRUBIN,URINE NEGATIVE (NEGATIVE); COLOR,URINE YELLOW; GLUCOSE, URINE NEGATIVE (NEGATIVE); KETONES,URINE NEGATIVE (NEGATIVE); LEUKOCYTE ESTERASE,URINE NEGATIVE (NEGATIVE); NITRITE,URINE NEGATIVE (NEGATIVE); PROTEIN,URINE NEGATIVE (NEGATIVE); URINE SPECIFIC GRAVITY 1.015; UROBILINOGEN,URINE NEGATIVE mg/dL (<2.0)
[2018-09-01] MEDS ORDERED: ACETAMINOPHEN 325 MG TABLET PO ONE (19:10)
[2018-09-01 19:41] VITALS: BP 142/88
== END 2018-09-01 19:43 | disposition home or self-care (01) ==
LOC: ER 16:10
DX: J06.9 Acute upper respiratory infection, unspecified (principal); R11.2 Nausea with vomiting, unspecified; R05 Cough; M79.10 Myalgia, unspecified site; R50.9 Fever, unspecified; J34.89 Other specified disorders of nose and nasal sinuses; R06.02 Shortness of breath; R09.81 Nasal congestion; R09.82 Postnasal drip; J02.9 Acute pharyngitis, unspecified; J45.909 Unspecified asthma, uncomplicated; F12.10 Cannabis abuse, uncomplicated; Z88.1 Allergy status to other antibiotic agents; Z88.8 Allergy status to other drugs, medicaments and biological substances
CPT/HCPCS: 99284; 81001; 71046; J3490

== ENCOUNTER 2018-10-08 12:59 | Emergency (ER) | payer MEDICAID ==
[2018-10-08 13:17] VITALS: BP 150/77
[2018-10-08] MEDS ORDERED: ACETAMINOPHEN 325 MG TABLET PO ONE (14:09)
[2018-10-08] MEDS ORDERED: IBUPROFEN 600 MG TABLET PO ONE (14:09)
[2018-10-08 14:57] LABS: A TYPE INFLUENZA AG NEGATIVE (NEGATIVE); B INFLUENZA AG NEGATIVE (NEGATIVE)
--- NOTE | 2018-10-08 15:20 | ER Document Report ---
ED General - General Chief Complaint: Pain All Over Stated Complaint: BODY PAIN Time Seen by Provider: 10/08/18 13:53 Notes: Patient is a 18-year-old female who presents to the emergency department with a chief complaint of body aches for the past week. 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 She has been taken Motrin and Tylenol at home, but only once or twice a day. She also states that she has some family members that have been diagnosed with the flu. She does complain of rhinorrhea and cough that started a few days ago. She denies a productive cough. She denies any vomiting, diarrhea, or nausea. TRAVEL OUTSIDE OF THE [place] IN LAST 30 DAYS: No - Related Data Allergies/Adverse Reactions: erythromycin base [Erythromycin Base] Allergy (Mild, Verified 09/01/18 16:16) VOMITING amoxicillin trihydrate [From Augmentin] Adverse Reaction (Intermediate, Verified 09/01/18 16:16) numb Potassium Clavulanate * [From Augmentin] Adverse Reaction (Intermediate, Verified 09/01/18 16:16) numb aspirin [Aspirin] Adverse Reaction (Verified 09/01/18 16:16) steroids Allergy (Mild, Uncoded 09/01/18 16:16) rash Past Medical History - Social History Smoking Status: Never Smoker Chew tobacco use (# tins/day): No Frequency of alcohol use: None Drug Abuse: None Family History: CAD, COPD, CVA, DM, Hyperlipidemia, Hypertension Patient has suicidal ideation: No Patient has homicidal ideation: No Pulmonary Medical History: Reports: Hx Asthma Neurological Medical History: Reports: Hx Migraine. Denies: Hx Cerebrovascular Accident, Hx Seizures Renal/ Medical History: Denies: Hx Peritoneal Dialysis Musculoskeletal Medical History: Reports Hx Musculoskeletal Deformity Psychiatric Medical History: Reports: Hx Anxiety, Hx Bipolar Disorder, Hx Depression Past Surgical History: Reports: Hx Breast Surgery - reduction, Hx Nose Surgery - Sinus surgery, Hx Tonsillectomy - Immunizations Immunizations up to date: Yes Hx Diphtheria, Pertussis, Tetanus Vaccination: Yes Review of Systems - Review of Systems Notes: REVIEW OF SYSTEMS: CONSTITUTIONAL : Denies recent illness. Denies recent unintentional weight loss. Denies fever, chills, or sweats. EENT: See HPI CARDIOVASCULAR: Denies chest pain. RESPIRATORY: Denies shortness of breath, cough, congestion, difficulty breathing, or wheezing. GASTROINTESTINAL: Denies nausea, vomiting, and diarrhea. Denies abdominal pain. Denies constipation. GENITOURINARY: Denies difficulty urinating, burning, blood in urine, urgency or frequency. MUSCULOSKELETAL: Denies neck and back pain. Denies joint pain or swelling. SKIN: Denies rash, itchiness, or lesions HEMATOLOGIC : Denies easy bruising or bleeding. LYMPHATIC: Denies swollen, painful, enlarged glands. NEUROLOGICAL: Denies no numbness or tingling denies weakness. Denies headache. Denies altered mental status. Denies alteration in speech. PSYCHIATRIC: Denies stress, anxiety, alteration in sleep patterns, or depression. All other systems reviewed and negative. Physical Exam - Vital signs Vitals: Temp Pulse Resp BP Pulse Ox 98.1 F 72 18 150/77 H 97 10/08/18 13:15 10/08/18 13:15 10/08/18 13:15 10/08/18 13:15 10/08/18 13:15 - Notes Notes: PHYSICAL EXAMINATION: GENERAL: Appears well, healthy, well-nourished, no acute distress. HEAD: Normocephalic, atraumatic. EYES: PERRL, conjunctiva normal, all extraocular movements intact, sclera nonicteric ENT: Moist mucous membranes. Rhinorrhea noted. NECK: Supple, no noticeable swelling, redness, rash. Normal range of motion. LUNGS: Equal breath sounds bilaterally and clear to auscultation. No wheezes rales or rhonchi. CARDIOVASCULAR: S1-S2, regular rate, regular rhythm. Radial pulses 2+, normal. ABDOMEN: Normoactive bowel sounds. Soft, nontender, no guarding, no rebound tenderness, and no masses palpated. EXTREMITIES: Normal strength and range of motion, no pitting or edema. No cyanosis. NEUROLOGICAL: Moves all extremities upon command. Strength 5/5 in all extremities. PSYCH: Normal mood, normal affect. SKIN: Warm, dry. No rash, lesions, ulcerations noted. Normal skin turgor. Course - Re-evaluation Re-evalutation: Based off patient's history and physical exam, she will be given Motrin Tylenol for pain control and an influenza screen will be sent. She will also be tested for influenza. I do not suspect the patient has pneumonia, or any life- threatening etiology at this time. The patient is influenza screen is negative. I suspect her body aches are due to her being more physically active and she is not physically active on a normal basis. 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 She will start on cetirizine to help with her rhinorrhea. Verbal discharge instructions were given to the patient. They verbalized understanding. They are stable for discharge. - Vital Signs Vital signs: Temp Pulse Resp BP Pulse Ox 98.2 F 75 16 150/77 H 97 10/08/18 15:32 10/08/18 15:32 10/08/18 15:32 10/08/18 15:32 10/08/18 15:32 Discharge - Discharge Clinical Impression: Body aches, Rhinorrhea, Cough Condition: Stable Disposition: HOME, SELF-CARE Additional Instructions: You were seen today in the emergency department for body aches and flulike symptoms. Your lab results show that you do not have the flu. You may have an upper respiratory viral infection causing your symptoms. Viruses can last 7-10 days. Your body aches are also most likely due to you increasing her activity by working. You may take ibuprofen 600 mg and Tylenol 1000 mg every 6 hours as needed for the pain. You may take cetirizine 10 mg daily for your runny nose and cough. If you feel like your symptoms are getting worse, develop a fever greater than 100.4 F, have worsening symptoms, please return to the emergency department.
== END 2018-10-08 15:32 | disposition home or self-care (01) ==
LOC: ER 12:59
DX: R52 Pain, unspecified (principal); J34.89 Other specified disorders of nose and nasal sinuses; R05 Cough; J45.909 Unspecified asthma, uncomplicated; Z20.828 Contact with and (suspected) exposure to other viral communicable diseases; Z88.1 Allergy status to other antibiotic agents; Z88.8 Allergy status to other drugs, medicaments and biological substances
CPT/HCPCS: 99283; 87804; J3490 ×2

== ENCOUNTER 2018-12-26 08:39 | Emergency (ER) | payer MEDICAID ==
[2018-12-26 08:54] VITALS: BP 136/83
--- NOTE | 2018-12-26 09:00 | ER Document Report ---
ED Respiratory Problem - General Chief Complaint: Cold Symptoms Stated Complaint: FLU LIKE SYMPTOMS Time Seen by Provider: 12/26/18 08:59 Mode of Arrival: Ambulatory Information source: Patient Notes: 18-year-old female presents to ED for complaint of cough cold congestion for 2-3 weeks. She states she started with a sinus infection and took antibiotics for then she developed a cold cough. She states she is been to her PCM who told her she had a viral infection. She has cough cold congestion and generalized body aches. She is alert oriented respirations regular and unlabored speaking in full sentences walking with a even steady gait. TRAVEL OUTSIDE OF THE [place] IN LAST 30 DAYS: No - HPI Onset: Other - 2-3 weeks Duration: Continuous Initiating Event: URI Quality of pain: Achy Severity: Moderate Pain Level: 4 Cough: Nonproductive Sputum amount: None Associated symptoms: Congestion, Cough, PND, Runny nose, Sinus pain/pressure Similar symptoms previously: Yes Recently seen / treated by doctor: No - Related Data Allergies/Adverse Reactions: erythromycin base [Erythromycin Base] Allergy (Mild, Verified 12/26/18 08:47) VOMITING amoxicillin trihydrate [From Augmentin] Adverse Reaction (Intermediate, Verified 12/26/18 08:47) numb Potassium Clavulanate * [From Augmentin] Adverse Reaction (Intermediate, Verified 12/26/18 08:47) numb aspirin [Aspirin] Adverse Reaction (Verified 12/26/18 08:47) steroids Allergy (Mild, Uncoded 12/26/18 08:47) rash Past Medical History - General Information source: Patient - Social History Smoking Status: Never Smoker Frequency of alcohol use: None Drug Abuse: None Lives with: Family Family History: CAD, COPD, CVA, DM, Hyperlipidemia, Hypertension Patient has suicidal ideation: No Patient has homicidal ideation: No Pulmonary Medical History: Reports: Hx Asthma EENT Medical History: Reports: None Neurological Medical History: Reports: Hx Migraine Endocrine Medical History: Reports: None Renal/ Medical History: Reports: None Malignancy Medical History: Reports: None GI Medical History: Reports: None Musculoskeletal Medical History: Reports Hx Musculoskeletal Deformity Skin Medical History: Reports None Psychiatric Medical History: Reports: Hx Anxiety, Hx Bipolar Disorder, Hx Depression Traumatic Medical History: Reports: None Infectious Medical History: Reports: None Past Surgical History: Reports: Hx Breast Surgery - reduction, Hx Nose Surgery - Sinus surgery, Hx Tonsillectomy - Immunizations Immunizations up to date: Yes Hx Diphtheria, Pertussis, Tetanus Vaccination: Yes Review of Systems - Review of Systems Constitutional: Recent illness EENT: Nose congestion, Nose discharge, Sinus pressure, Sinus discharge, Throat pain Cardiovascular: No symptoms reported Respiratory: Cough Gastrointestinal: No symptoms reported Genitourinary: No symptoms reported Female Genitourinary: No symptoms reported Musculoskeletal: No symptoms reported Skin: No symptoms reported Hematologic/Lymphatic: No symptoms reported Neurological/Psychological: No symptoms reported -: Yes All other systems reviewed and negative Physical Exam - Vital signs Vitals: Temp Pulse Resp BP Pulse Ox 98.0 F 84 16 136/83 H 97 12/26/18 08:53 12/26/18 08:53 12/26/18 08:53 12/26/18 08:53 12/26/18 08:53 Interpretation: Normal - General General appearance: Appears well, Alert - HEENT Head: Normocephalic, Atraumatic Eyes: Normal Pupils: PERRL Ears: Normal External canal: Normal Tympanic membrane: Normal Sinus: Normal Nasal: Purulent discharge, Swelling Mouth/Lips: Normal Mucous membranes: Normal Pharynx: Post nasal drainage Neck: Normal - Respiratory Respiratory status: No respiratory distress Chest status: Nontender Breath sounds: Nonproductive cough Chest palpation: Normal - Cardiovascular Rhythm: Regular Heart sounds: Normal auscultation Murmur: No - Abdominal Inspection: Normal Distension: No distension Bowel sounds: Normal Tenderness: Nontender Organomegaly: No organomegaly - Back Back: Normal, Nontender - Extremities General upper extremity: Normal inspection, Nontender, Normal color, Normal ROM, Normal temperature General lower extremity: Normal inspection, Nontender, Normal color, Normal ROM, Normal temperature, Normal weight bearing. No: Emeli's sign - Neurological Neuro grossly intact: Yes Cognition: Normal Orientation: AAOx4 Fields Coma Scale Eye Opening: Spontaneous Fields Coma Scale Verbal: Oriented Abby Coma Scale Motor: Obeys Commands Fields Coma Scale Total: 15 Speech: Normal Motor strength normal: LUE, RUE, LLE, RLE Sensory: Normal - Psychological Associated symptoms: Normal affect, Normal mood - Skin Skin Temperature: Warm Skin Moisture: Dry Skin Color: Normal Course - Re-evaluation Re-evalutation: 12/26/18 09:14 After performing a Medical Screening Examination, I estimate there is LOW risk for ACUTE CORONARY SYNDROME, RESPIRATORY FAILURE, SEPSIS OR MENINGITIS, thus I consider the discharge disposition reasonable. I have reevaluated this patient multiple times and no significant life threatening changes are noted. The patient and I have discussed the diagnosis and risks, and we agree with discharging home with close follow-up. We also discussed returning to the Emergency Department immediately if new or worsening symptoms occur. We have discussed the symptoms which are most concerning (e.g., changing or worsening pain, trouble swallowing or breathing, neck stiffness, fever) that necessitate immediate return. - Vital Signs Vital signs: Temp Pulse Resp BP Pulse Ox 98.0 F 84 16 136/83 H 97 12/26/18 08:53 12/26/18 08:53 12/26/18 08:53 12/26/18 08:53 12/26/18 08:53 Discharge - Discharge Clinical Impression: URI (upper respiratory infection) Qualifiers: URI type: unspecified viral URI Qualified Code(s): J06.9 - Acute upper respiratory infection, unspecified Condition: Stable Disposition: HOME, SELF-CARE Instructions: Family Physicians / Practices Additional Instructions: UPPER RESPIRATORY ILLNESS: You have a viral infection of the respiratory passages -- a "cold." This common infection causes nasal congestion, drainage, and often sore throat and cough. It is highly contagious. The disease usually lasts about 10 to 14 days. There is no "cure" for the viral infection -- it must run its course. If there is a complication, such as bacterial infection in the nose, sinuses, middle ear, or bronchial tubes, antibiotics may be required. The antibiotics won't affect the virus. Drink plenty of fluids. A humidifier may help. An expectorant medication or decongestant may make you more comfortable. Use acetaminophen or ibuprofen for fever or aches. See the doctor if fever persists over two days, if there is any significant worsening of your symptoms, or if you simply fail to improve as expected. COUGH-SUPPRESSANT & EXPECTORANT MEDICATION: You are to use a cough medication as needed for relief of symptoms. This medicine is a combination of an expectorant (to make the mucous thinner and more easily "coughed up") and a cough suppressant (to reduce the frequency of coughing). The cough-suppressant medicine is related to narcotics. You may experience mild nausea and sleepiness. Some patients who are very sensitive to narcotics may have stomach pain from this medicine. Taking the medicine with food reduces these side effects. Do not drive or work with machinery until you know how this medicine affects you. The expectorant should have no side effects. Iodine-containing expectorants (such as organidin) should not be taken by persons with active thyroid disease unless approved by your doctor. Call the doctor if you develop shortness of breath, hives, rash, itching, lightheadedness, or severe nausea and vomiting. USE OF ACETAMINOPHEN (Tylenol): Acetaminophen may be taken for pain relief or fever control. It's much safer than aspirin, offering a wider range of "safe" dosages. It is safe during . Some brand names are Tylenol, Panadol, Datril, Anacin 3, Tempra, and Liquiprin. Acetaminophen can be repeated every four hours. The following are maximum recommended dosages: >89 pounds or adults 650 mg to 900 mg Acetaminophen can be repeated every four hours. Maximum dose not to exceed 4000 mg a day. Thanks they can help your cough cold congestion symptoms are Claritin 10 mg, Sudafed 30 mg, you get that across the counter at the drugstore. Mucinex 600 mg, Tylenol 650, Flonase nasal spray, salt and soda solution gargles to remove the drainage from the back your throat. Salt and soda solution gargle 1 quart of water 1 tablespoon of salt 1 teaspoon of baking soda Mixed 3 ingredients together and boil for 1 minute Placed in a covered quart jar Use 1/2 ounce of cold solution to gargle 3 times a day FOLLOW-UP CARE: If you have been referred to a physician for follow-up care, call the physicians office for an appointment as you were instructed or within the next two days. If you experience worsening or a significant change in your symptoms, notify the physician immediately or return to the Emergency Department at any time for re-evaluation. Forms: Elevated Blood Pressure, Return to School
== END 2018-12-26 09:20 | disposition home or self-care (01) ==
LOC: ER 08:39
DX: J06.9 Acute upper respiratory infection, unspecified (principal); B97.89 Other viral agents as the cause of diseases classified elsewhere; R05 Cough; R09.82 Postnasal drip; R09.81 Nasal congestion; R07.0 Pain in throat; J34.89 Other specified disorders of nose and nasal sinuses; J45.909 Unspecified asthma, uncomplicated; Z88.1 Allergy status to other antibiotic agents; Z88.0 Allergy status to penicillin; Z88.8 Allergy status to other drugs, medicaments and biological substances
CPT/HCPCS: 99283

== ENCOUNTER 2019-06-21 14:19 | Emergency (ER) | payer MEDICAID ==
--- NOTE | 2019-06-21 14:56 | ER Document Report ---
HPI - HPI Patient complains to provider of: sinus pain, chest pain Time Seen by Provider: 06/21/19 14:43 Onset: Other Quality of pain: Achy Pain Level: 2 Context: This 18-year-old female presents emergency department with complaints of sinus pressure for the past 3 days with no fever vomiting diarrhea. Reports she is taking [id number] decongestant without relief of symptoms. She also complains of chest pain due to stress that comes and goes for the past week. Denies chest pain at this time. Denies history of cardiac disease. Patient reports she was supposed to have sinus surgery but the opener tender refused to have it done. Patient has not followed up with her primary care provider and she does not know how long. Reports history of anxiety. Denies family members her age with sudden cardiac disease. She denies history of IV drug use. Denies history of cocaine use. Denies recent energy drinks. Associated Symptoms: Chest pain, Sinus pain/drainage. denies: Fever, Vomiting, Shortness of breath Exacerbated by: Denies Relieved by: Denies Similar symptoms previously: Yes Recently seen / treated by doctor: No - REPRODUCTIVE Reproductive: DENIES: : Past Medical History - General Information source: Patient Last Menstrual Period: Just finished denies - Social History Smoking Status: Never Smoker Chew tobacco use (# tins/day): No Frequency of alcohol use: None Drug Abuse: None Lives with: Family Family History: CAD, COPD, CVA, DM, Hyperlipidemia, Hypertension Patient has suicidal ideation: No Patient has homicidal ideation: No Pulmonary Medical History: Reports: Hx Asthma Neurological Medical History: Reports: Hx Migraine. Denies: Hx Cerebrovascular Accident, Hx Seizures Renal/ Medical History: Denies: Hx Peritoneal Dialysis Musculoskeletal Medical History: Reports Hx Musculoskeletal Deformity Psychiatric Medical History: Reports: Hx Anxiety, Hx Bipolar Disorder, Hx Depression Past Surgical History: Reports: Hx Breast Surgery - reduction, Hx Nose Surgery - Sinus surgery, Hx Tonsillectomy - Immunizations Immunizations up to date: Yes Hx Diphtheria, Pertussis, Tetanus Vaccination: Yes Vertical Provider Document - CONSTITUTIONAL Agree With Documented VS: Yes Exam Limitations: No Limitations General Appearance: WD/WN, No Apparent Distress - INFECTION CONTROL TRAVEL OUTSIDE OF THE [place] IN LAST 30 DAYS: No - HEENT HEENT: Atraumatic, Normal ENT Exam, Normocephalic. negative: Conjuctival Injection, Pharyngeal Erythema, Tympanic Membrane Red - NECK Neck: Normal Inspection, Supple. negative: Lymphadenopathy-Left, Lymphadenopathy-Right - RESPIRATORY Respiratory: Breath Sounds Normal, No Respiratory Distress - CARDIOVASCULAR Cardiovascular: Regular Rate, Regular Rhythm - GI/ABDOMEN Gastrointestinal: Abdomen Soft, Abdomen Non-Tender - MUSCULOSKELETAL/EXTREMETIES Musculoskeletal/Extremeties: HARPREET HUSTON - NEURO Level of Consciousness: Awake, Alert, Appropriate Motor/Sensory: No Motor Deficit - DERM Integumentary: Warm, Dry, No Rash Course - Re-evaluation Re-evalutation: 06/21/19 15:00 18-year-old female presents to the emergency department the slightest pain for 3 days and chest pain on and off for over a week. Patient denies fever vomiting diarrhea. Reports she has a history of sinus issues. Patient denies chest pain at this time. Denies history of cardiac disease. Reports she is under a lot of stress. Patient is requesting I write a note to her family that she cannot go on a vacation tomorrow with family because it stresses her out. Patient has been taking [id number] sinus medication. I instructed her on Mucinex or Zyrtec-D. I also instructed on ibuprofen. EKG shows sinus rhythm no ST elevation or T wave inversion. Patient was instructed to follow-up with the primary care provider for full evaluation full physical and referral to a cardiology as indicated dictation of this chart was performed using voice recognition software; therefore, there may be some unintended grammatical errors. - EKG Interpretation by Me EKG shows normal: Sinus rhythm Rate: Normal Rhythm: NSR Additional EKG results interpreted by me: 06/21/19 15:[address] elevation no T wave inversion Discharge - Discharge Clinical Impression: Sinus pain Chest pain Qualifiers: Chest pain type: unspecified Qualified Code(s): R07.9 - Chest pain, unspecified Condition: Stable Disposition: HOME, SELF-CARE Instructions: Chest Pain of Unclear Cause ([facility]), Decongestant Medication ([facility]) Additional Instructions: *You have been evaluated for sinus pain and chest pain Take [id number] decongestant and ibuprofen for pain *Follow up with a primary care provider within 5 days for recheck *Return to ED for worsening condition, changes, needs, concerns worsening pain fever Referrals: MARTHA PIPER DO [Primary Care Provider] - Follow up tomorrow
--- NOTE | 2019-06-21 15:10 | ER Document Report ---
ED Medical Screen (RME) - General Chief Complaint: Congestion Stated Complaint: POSSIBLE SINUS INFECTION, CHEST PAIN Time Seen by Provider: 06/21/19 14:43 Primary Care Provider: MARTHA PIPER DO [Primary Care Provider] - Follow up tomorrow Mode of Arrival: Ambulatory Information source: Patient Notes: This 18-year-old female presents emergency department with complaints of sinus pain chest pain. Reports sinus pain for 3 days with no fever vomiting diarrhea. Patient also complains of chest pain for the past week reports it comes and goes. Denies chest pain at this time. Describes it as sharp in the center of her chest. EKG shows some Twave inversion in lead III. Discussed this with Dr. morrison who advises d-dimer. If d-dimer is positive he advises CTA. Patient and grandmother informed of need for blood work. I have greeted and performed a rapid initial assessment of this patient. A comprehensive ED assessment and evaluation of the patient, analysis of test results and completion of the medical decision making process will be conducted by additional ED providers. Dictation of this chart was performed using voice recognition software; therefore, there may be some unintended grammatical errors. TRAVEL OUTSIDE OF THE [place] IN LAST 30 DAYS: No - Related Data Allergies/Adverse Reactions: erythromycin base [Erythromycin Base] Allergy (Mild, Verified 12/26/18 08:47) VOMITING amoxicillin trihydrate [From Augmentin] Adverse Reaction (Intermediate, Verified 12/26/18 08:47) numb Potassium Clavulanate * [From Augmentin] Adverse Reaction (Intermediate, Verified 12/26/18 08:47) numb aspirin [Aspirin] Adverse Reaction (Verified 12/26/18 08:47) steroids Allergy (Mild, Uncoded 12/26/18 08:47) rash Past Medical History - Social History Chew tobacco use (# tins/day): No Frequency of alcohol use: None Drug Abuse: None Pulmonary Medical History: Reports: Hx Asthma Neurological Medical History: Reports: Hx Migraine. Denies: Hx Cerebrovascular Accident, Hx Seizures Renal/ Medical History: Denies: Hx Peritoneal Dialysis Musculoskeltal Medical History: Reports Hx Musculoskeletal Deformity Psychiatric Medical History: Reports: Hx Anxiety, Hx Bipolar Disorder, Hx Depression Past Surgical History: Reports: Hx Breast Surgery - reduction, Hx Nose Surgery - Sinus surgery, Hx Tonsillectomy - Immunizations Immunizations up to date: Yes Hx Diphtheria, Pertussis, Tetanus Vaccination: Yes Doctor's Discharge - Discharge Clinical Impression: Sinus pain Chest pain Qualifiers: Chest pain type: unspecified Qualified Code(s): R07.9 - Chest pain, unspecified Condition: Stable Disposition: HOME, SELF-CARE Instructions: Chest Pain of Unclear Cause ([facility]), Decongestant Medication ([facility]) Additional Instructions: *You have been evaluated for sinus pain and chest pain Take [id number] decongestant and ibuprofen for pain *Follow up with a primary care provider within 5 days for recheck *Return to ED for worsening condition, changes, needs, concerns worsening pain fever Referrals: MARTHA PIPER DO [Primary Care Provider] - Follow up tomorrow
[2019-06-21 15:41] LABS: ABSOLUTE EOSINOPHILS # (AUTO) 0.3 10^3/uL (0.0-0.6); ABSOLUTE LYMPHOCYTES (AUTO) 2.8 10^3/uL (0.5-4.7); ABSOLUTE MONOCYTES (AUTO) 0.4 10^3/uL (0.1-1.4); ABSOLUTE NEUT (AUTO) 3.6 10^3/uL (1.7-8.2); BASOPHILS % (AUTO) 0.4 % (0-2); EOSINOPHILS % (AUTO) 4.6 % (0-6); HEMATOCRIT 37.1 % (36.0-47.0); HEMOGLOBIN 12.4 g/dL (12.0-15.5); LYMPHOCYTES % (AUTO) 38.3 % (13-45); MEAN CORPUSCULAR HEMOGLOBIN 28.5 pg (27.0-33.4); MEAN CORPUSCULAR HGB CONC 33.6 g/dL (32.0-36.0); MEAN CORPUSCULAR VOLUME 85 fl (80-97); MONOCYTES % (AUTO) 6.1 % (3-13); PLATELET COUNT 442 10^3/uL (150-450); RED BLOOD COUNT 4.37 10^6/uL (3.72-5.28); RED CELL DISTRIBUTION WIDTH 13.3 % (11.5-14.0); SEGMENTED NEUTROPHILS % (AUTO) 50.6 % (42-78); TOTAL CELLS COUNTED % (AUTO) 100 %; WHITE BLOOD COUNT 7.2 10^3/uL (4.0-10.5)
[2019-06-21 16:05] LABS: ALBUMIN 4.5 g/dL (3.5-5.0); ALKALINE PHOSPHATASE 62 U/L (38-126); ANION GAP 9 (5-19); ASPARTATE AMINO TRANSFERASE 19 U/L (14-36); BILIRUBIN,DIRECT 0.1 mg/dL (0.0-0.4); BILIRUBIN,TOTAL 0.2 mg/dL (0.2-1.3); BLOOD UREA NITROGEN 12 mg/dL (7-20); CALCIUM 9.8 mg/dL (8.4-10.2); CARBON DIOXIDE 26 mmol/L (22-30); CHLORIDE 104 mmol/L (98-107); POTASSIUM 4.6 mmol/L (3.6-5.0)
[2019-06-21 16:08] LABS: GLUCOSE 67 mg/dL (75-110)
--- NOTE | 2019-06-21 16:17 | ER Document Report ---
ED General - General Chief Complaint: Congestion Stated Complaint: POSSIBLE SINUS INFECTION, CHEST PAIN Time Seen by Provider: 06/21/19 14:43 Primary Care Provider: MARTHA PIPER DO [Primary Care Provider] - Follow up tomorrow Mode of Arrival: Ambulatory Notes: Patient is a 18-year-old female who presents to the emergency department with a chief complaint of sinus pain. Patient reports she has had sinus pressure for about 3 days and nasal congestion. Patient reports she is also had intermittent runny nose. Patient denies fever, nausea, vomiting or diarrhea. Patient also reports having constant chest pain for about 1 week. Patient reports it became more intermittent today. Patient reports sometimes is in the center of her chest and sometimes it is located underneath the left breast. Patient reports this is sharp in nature. Patient denies cardiac history. Patient denies acid reflux or belching. TRAVEL OUTSIDE OF THE [place] IN LAST 30 DAYS: No - Related Data Allergies/Adverse Reactions: erythromycin base [Erythromycin Base] Allergy (Mild, Verified 12/26/18 08:47) VOMITING amoxicillin trihydrate [From Augmentin] Adverse Reaction (Intermediate, Verified 12/26/18 08:47) numb Potassium Clavulanate * [From Augmentin] Adverse Reaction (Intermediate, Verified 12/26/18 08:47) numb aspirin [Aspirin] Adverse Reaction (Verified 12/26/18 08:47) steroids Allergy (Mild, Uncoded 12/26/18 08:47) rash Past Medical History - General Information source: Patient - Social History Smoking Status: Never Smoker Chew tobacco use (# tins/day): No Frequency of alcohol use: None Drug Abuse: None Lives with: Family Family History: CAD, COPD, CVA, DM, Hyperlipidemia, Hypertension Patient has suicidal ideation: No Patient has homicidal ideation: No - Past Medical History Cardiac Medical History: Reports: None Pulmonary Medical History: Reports: Hx Asthma EENT Medical History: Reports: None Neurological Medical History: Reports: Hx Migraine. Denies: Hx Cerebrovascular Accident, Hx Seizures Endocrine Medical History: Reports: None Renal/ Medical History: Reports: None. Denies: Hx Peritoneal Dialysis Malignancy Medical History: Reports: None GI Medical History: Reports: None Musculoskeletal Medical History: Reports Hx Musculoskeletal Deformity Skin Medical History: Reports None Psychiatric Medical History: Reports: Hx Anxiety, Hx Bipolar Disorder, Hx Depression Traumatic Medical History: Reports: None Infectious Medical History: Reports: None Past Surgical History: Reports: Hx Breast Surgery - reduction, Hx Nose Surgery - Sinus surgery, Hx Tonsillectomy - Immunizations Immunizations up to date: Yes Hx Diphtheria, Pertussis, Tetanus Vaccination: Yes Review of Systems - Review of Systems Constitutional: No symptoms reported EENT: See HPI Cardiovascular: See HPI Respiratory: No symptoms reported Gastrointestinal: No symptoms reported Genitourinary: No symptoms reported Female Genitourinary: No symptoms reported Musculoskeletal: No symptoms reported Skin: No symptoms reported Hematologic/Lymphatic: No symptoms reported Neurological/Psychological: No symptoms reported Physical Exam - Vital signs Vitals: Temp Pulse BP Pulse Ox 97.7 F 81 114/66 99 06/21/19 15:56 06/21/19 15:56 06/21/19 15:56 06/21/19 15:56 - Notes Notes: GENERAL: Well-appearing, well-nourished and in no acute distress. HEAD: Atraumatic, normocephalic. EYES: Pupils equal round and reactive to light, extraocular movements intact, sclera anicteric, conjunctiva are normal. ENT: TMs normal, nares patent, oropharynx clear without exudates. Moist mucous membranes. Mild sinus tenderness to maxillary and frontal sinus. NECK: Normal range of motion, supple without lymphadenopathy or JVD. LUNGS: Breath sounds clear to auscultation bilaterally and equal. No wheezes r ales or rhonchi. HEART: Regular rate and rhythm without murmurs, rubs or gallops. No reproducible chest pain. ABDOMEN: Soft, nontender, normoactive bowel sounds. No guarding, no rebound. No masses appreciated. BACK: No cervical, thoracic, lumbar midline tenderness. No saddle anesthesia, normal distal neurovascular exam. GENITOURINARY: Deferred. EXTREMITIES: Normal range of motion, no pitting or edema. No clubbing or cyanosis. NEUROLOGICAL: Cranial nerves II through XII grossly intact. Normal speech, normal gait. PSYCH: Normal mood, normal affect. SKIN: Warm, Dry, normal turgor, no rashes or lesions noted. Course - Re-evaluation Re-evalutation: 06/21/19 16:31 Patient's blood sugar was in the 60s. Patient is completely alert and oriented x3. Patient is not symptomatic. Did give patient some juice. - Vital Signs Vital signs: Temp Pulse Resp BP Pulse Ox 97.8 F 81 16 132/63 H 100 06/21/19 16:49 06/21/19 15:56 06/21/19 16:49 06/21/19 16:49 06/21/19 16:49 - Laboratory Result Diagrams: 06/21/19 15:27 06/21/19 15:27 Laboratory results interpreted by me: 06/21/19 15:27 Glucose 67 L Patient's blood work does not reveal leukocytosis, anemia, alteration in electrolytes, liver function. Patient's d-dimer was negative. Patient's glucose was 67 and patient was given juice. Patient's troponin also negative. Laboratory 06/21/19 06/21/19 06/21/19 15:27 15:27 15:27 WBC 7.2 RBC 4.37 Hgb 12.4 Hct 37.1 MCV 85 MCH 28.5 MCHC 33.6 RDW 13.3 Plt Count 442 Lymph % (Auto) 38.3 Waller % (Auto) 6.1 Eos % (Auto) 4.6 Baso % (Auto) 0.4 Absolute Neuts (auto) 3.6 Absolute Lymphs (auto) 2.8 Absolute Monos (auto) 0.4 Absolute Eos (auto) 0.3 Absolute Basos (auto) 0.0 Seg Neutrophils % 50.6 D-Dimer 0.36 Sodium 139.1 Potassium 4.6 Chloride 104 Carbon Dioxide 26 Anion Gap 9 BUN 12 Creatinine 0.87 Est GFR ( Amer) > 60 Est GFR (MDRD) Non-Af > 60 Glucose 67 L Calcium 9.8 Total Bilirubin 0.2 Direct Bilirubin 0.1 Neonat Total Bilirubin Not Reportable Neonat Direct Bilirubin Not Reportable Neonat Indirect Bili Not Reportable AST 19 ALT 11 Alkaline Phosphatase 62 Troponin I Total Protein 8.0 Albumin 4.5 06/21/19 15:27 WBC RBC Hgb Hct MCV MCH MCHC RDW Plt Count Lymph % (Auto) Waller % (Auto) Eos % (Auto) Baso % (Auto) Absolute Neuts (auto) Absolute Lymphs (auto) Absolute Monos (auto) Absolute Eos (auto) Absolute Basos (auto) Seg Neutrophils % D-Dimer Sodium Potassium Chloride Carbon Dioxide Anion Gap BUN Creatinine Est GFR ( Amer) Est GFR (MDRD) Non-Af Glucose Calcium Total Bilirubin Direct Bilirubin Neonat Total Bilirubin Neonat Direct Bilirubin Neonat Indirect Bili AST ALT Alkaline Phosphatase Troponin I < 0.012 Total Protein Albumin - EKG Interpretation by Me Additional EKG results interpreted by me: 06/21/19 16:31 Patient's EKG shows a sinus rhythm with a heart rate of 84. Patient's VT interval is 160, QT 352 and QTc is 417. Patient has a normal axis deviation. Patient does have T wave inversion in lead III but this is not present in consecutive leads. The T wave inversion is new when compared to the previous EKG and February 2018. Discharge - Discharge Clinical Impression: Sinus pain Chest pain Qualifiers: Chest pain type: unspecified Qualified Code(s): R07.9 - Chest pain, unspecified Condition: Stable Disposition: HOME, SELF-CARE Instructions: Chest Pain of Unclear Cause ([facility]), Decongestant Medication ([facility]) Additional Instructions: *You have been evaluated for sinus pain and chest pain Take [id number] decongestant and ibuprofen for pain *Follow up with a primary care provider within 5 days for recheck *Return to ED for worsening condition, changes, needs, concerns worsening pain fever CHEST PAIN OF UNCLEAR CAUSE: The exact cause of your chest pain isn't clear. Fortunately, there is no evidence of a dangerous medical condition. Further testing may be required to find the source of the pain. Most often, we find that this pain is coming from the chest wall -- the muscles or rib joints in the chest. But chest pain can come from the lung and lung lining, the esophagus, the heart valves or heart lining, and even the stomach or gallbladder. Rest. Eat lightly until the pain is gone. We may prescribe medicine for pain and inflammation. You should call the physician immediately if the pain radiates to the shoulder, jaw or arms; if you start to run a fever or develop a cough; or if you develop shortness of breath, or other new or alarming symptoms. NORMAL EXAM AND WORKUP: At this time, your examination and workup show no significant abnormality. No significant abnormal physical findings were noted. All laboratory, EKG, and imaging (x-ray, CT scans, ultrasound) studies that were ordered show no significant abnormality. Although your examination and all studies that were ordered showed no significant abnormal finding, there are no examinations and no studies that are 100% accurate. There is always the possibility that some abnormality could exist and not be detected with physical examination or within the limits and capabilities of laboratory and other studies. You should return or follow up as you were instructed on your visit today for further evaluation if your symptoms do not resolve. FOLLOW-UP CARE: If you have been referred to a physician for follow-up care, call the physician s office for an appointment as you were instructed or within the next two days. If you experience worsening or a significant change in your symptoms, notify the physician immediately or return to the Emergency Department at any time for re-evaluation. Referrals: MARTHA PIPER DO [Primary Care Provider] - Follow up tomorrow
[2019-06-21 16:50] VITALS: BP 132/63
--- NOTE | 2019-06-21 19:53 | EKG REPORT ---
SEVERITY:- NORMAL ECG - SINUS RHYTHM : Confirmed by: Lorri Alfaro MD 21-Jun-2019 19:51:50
== END 2019-06-21 16:51 | disposition home or self-care (01) ==
LOC: ER 14:19
DX: J34.89 Other specified disorders of nose and nasal sinuses (principal); R09.81 Nasal congestion; R07.9 Chest pain, unspecified; R09.89 Other specified symptoms and signs involving the circulatory and respiratory systems; J45.909 Unspecified asthma, uncomplicated; Z88.1 Allergy status to other antibiotic agents; Z88.8 Allergy status to other drugs, medicaments and biological substances
CPT/HCPCS: 36415; 80053; 84484; 85025; 85379; 93005; 93010

== ENCOUNTER 2019-08-11 13:51 | Emergency (ER) | payer MEDICAID ==
[2019-08-11 13:56] VITALS: BP 150/93
--- NOTE | 2019-08-11 14:15 | ER Document Report ---
HPI - HPI Time Seen by Provider: 08/11/19 14:07 Pain Level: 1 Notes: Patient is a 18-year-old female complaining of sore throats for the past 5 days with possible lymph node under her left jaw that is been intermittently swelling for this timeframe as well. Patient states that she has been able to eat and drink, but does have pain when she swallows. She is urinating normally and having normal bowel movements. Patient has a medical history of mental health disorders and asthma. No other concerns or complaints. Denies any headache, fever, neck pain, URI, chest pain, palpitations, syncope, cough, shortness of breath, wheeze, dyspnea, abdominal pain, nausea/vomiting/diarrhea, urinary retention, dysuria, hematuria, or rash. - ROS Systems Reviewed and Negative: Yes All other systems reviewed and negative - REPRODUCTIVE Reproductive: DENIES: : Past Medical History - Social History Smoking Status: Never Smoker Chew tobacco use (# tins/day): No Drug Abuse: None Family History: CAD, COPD, CVA, DM, Hyperlipidemia, Hypertension Patient has suicidal ideation: No Patient has homicidal ideation: No Pulmonary Medical History: Reports: Hx Asthma Neurological Medical History: Reports: Hx Migraine. Denies: Hx Cerebrovascular Accident, Hx Seizures Renal/ Medical History: Denies: Hx Peritoneal Dialysis Musculoskeletal Medical History: Reports Hx Musculoskeletal Deformity Psychiatric Medical History: Reports: Hx Anxiety, Hx Bipolar Disorder, Hx Depression Past Surgical History: Reports: Hx Breast Surgery - reduction, Hx Nose Surgery - Sinus surgery, Hx Tonsillectomy - Immunizations Immunizations up to date: Yes Hx Diphtheria, Pertussis, Tetanus Vaccination: Yes Vertical Provider Document - CONSTITUTIONAL Agree With Documented VS: Yes Notes: PHYSICAL EXAMINATION: GENERAL: Well-appearing, well-nourished and in no acute distress. A&Ox4. Answers questions appropriately. Moves comfortably w/o notable distress HEAD: Atraumatic, normocephalic. EYES: Pupils equal round and reactive to light, extraocular movements intact, sclera anicteric, conjunctiva are normal. ENT: Nares patent and without discharge. oropharynx mild erythema without exudates. Tonsils surgically absent. No palatine shift. Uvula midline. No tongue protrusion. No drooling, hoarseness, or airway compromise. Moist mucous membranes. No sinus tenderness. NECK: Normal range of motion, small/mobile/tender left submandibular lymph node noted. No obvious goiter. No rigidity/meningismus. LUNGS: Breath sounds clear to auscultation bilaterally and equal. No wheezes rales or rhonchi. No retractions HEART: Regular rate and rhythm without murmurs, rubs, gallops. ABDOMEN: Soft, nontender, nondistended abdomen. No guarding, no rebound. Normal bowel sounds present. No CVA tenderness bilaterally. No hepatosplenomegaly. NEUROLOGICAL: Normal speech, normal gait. PSYCH: Normal mood, normal affect. SKIN: Warm, Dry, normal turgor, no rashes or lesions noted. - INFECTION CONTROL TRAVEL OUTSIDE OF THE [place] IN LAST 30 DAYS: No Course - Re-evaluation Re-evalutation: 08/11/19 Patient is an afebrile, well-hydrated, 27-year-old male who presents to the emergency department with an acute pharyngitis, suspect viral. Vitals are acceptable without significant tachycardia, tachypnea, or hypoxia. PE is otherwise unremarkable. She is nontoxic-appearing and is tolerating p.o. without difficulty. Lungs are clear to auscultation bilaterally. Rapid strep was negative with a throat culture pending. No further labs or imaging warranted at this time. Low suspicion for any meningitis, sepsis, peritonsillar/pharyngeal abscess, respiratory compromise, Juaquin's, or other emergent systemic condition at this time. Patient is aware this condition can change from initial presentation and she needs to monitor symptoms closely. Conservative measures otherwise for symptoms. Recheck with your PCM in 2-3 days. Return to the ED with any worsening/concerning symptoms otherwise as reviewed in discharge. Patient is in agreement. - Vital Signs Vital signs: Temp Pulse Resp BP Pulse Ox 98.5 F 99 18 150/93 H 98 08/11/19 13:55 08/11/19 13:55 08/11/19 13:55 08/11/19 13:55 08/11/19 13:55 Discharge - Discharge Clinical Impression: Sore throat Condition: Stable Disposition: HOME, SELF-CARE Instructions: Sore Throat ([facility]) Additional Instructions: Maintain adequate fluid intake Take meds as directed Salt water gargles, throat sprays, mouthwash rinse, peroxide gargles tylenol/ibuprofen as needed over the counter cold medication as needed for symptoms F/u: with your PCM in 2-3 days for a recheck Consider consult with ENT for ongoing/worsening symptoms Return to the ED with any fever, worsening pain, chest pain, neck pain/stiffness, shortness of breath, cough, drooling, trouble swallowing/breathing, abdominal pain, n/v/d, rash, or worsening/concerning symptoms otherwise. Forms: Elevated Blood Pressure Referrals: MARTHA PIPER DO [Primary Care Provider] - Follow up as needed JEWEL GONZALEZ DO [ASSOCIATE] - Follow up as needed
== END 2019-08-11 15:00 | disposition home or self-care (01) ==
LOC: ER 13:51
DX: J02.9 Acute pharyngitis, unspecified (principal); Z90.89 Acquired absence of other organs; J45.909 Unspecified asthma, uncomplicated
CPT/HCPCS: 87070; 87880; 99283

== ENCOUNTER 2019-12-05 21:54 | Emergency (ER) | payer SELFPAY ==
[2019-12-05] MEDS ORDERED: ONDANSETRON 4 MG TAB.RAPDIS PO ONE (22:28)
--- NOTE | 2019-12-05 22:30 | ER Document Report ---
ED Medical Screen (RME) - General Chief Complaint: Nausea/Vomiting Stated Complaint: NAUSEA COUGH Time Seen by Provider: 12/05/19 22:26 Primary Care Provider: MARTHA PIPER DO [Primary Care Provider] - Follow up as needed Mode of Arrival: Ambulatory Information source: Patient Notes: This 19-year-old healthy female nontoxic looking, laughing and smiling presents to the emergency department with reports of cold symptoms, virus on and off for the past couple months. She reports she is vomiting now sometimes twice a day for the past 4 days. Reports her abdomen is hurting but she just started her menses. Denies fever. Patient reports she did receive her flu vaccine. Also complains of some ear pain and stuffy nose. I have greeted and performed a rapid initial assessment of this patient. A comprehensive ED assessment and evaluation of the patient, analysis of test results and completion of the medical decision making process will be conducted by additional ED providers. TRAVEL OUTSIDE OF THE [place] IN LAST 30 DAYS: No - Related Data Allergies/Adverse Reactions: erythromycin base [Erythromycin Base] Allergy (Mild, Verified 08/11/19 14:12) VOMITING amoxicillin trihydrate [From Augmentin] Adverse Reaction (Intermediate, Verified 08/11/19 14:12) numb Potassium Clavulanate * [From Augmentin] Adverse Reaction (Intermediate, Verified 08/11/19 14:12) numb aspirin [Aspirin] Adverse Reaction (Verified 08/11/19 14:12) steroids Allergy (Mild, Uncoded 08/11/19 14:12) rash Past Medical History Pulmonary Medical History: Reports: Hx Asthma Neurological Medical History: Reports: Hx Migraine. Denies: Hx Cerebrovascular Accident, Hx Seizures Renal/ Medical History: Denies: Hx Peritoneal Dialysis Musculoskeltal Medical History: Reports Hx Musculoskeletal Deformity Psychiatric Medical History: Reports: Hx Anxiety, Hx Bipolar Disorder, Hx Depression Past Surgical History: Reports: Hx Breast Surgery - reduction, Hx Nose Surgery - Sinus surgery, Hx Tonsillectomy - Immunizations Immunizations up to date: Yes Hx Diphtheria, Pertussis, Tetanus Vaccination: Yes Physical Exam - Vital signs Vitals: Temp Pulse Resp BP Pulse Ox 98.2 F 63 18 152/94 H 98 12/05/19 22:09 12/05/19 22:09 12/05/19 22:09 12/05/19 22:09 12/05/19 22:09 Course - Vital Signs Vital signs: Temp Pulse Resp BP Pulse Ox 98.2 F 63 18 152/94 H 98 12/05/19 22:09 12/05/19 22:09 12/05/19 22:09 12/05/19 22:09 12/05/19 22:09 Doctor's Discharge - Discharge Referrals: MARTHA PIPER DO [Primary Care Provider] - Follow up as needed
--- NOTE | 2019-12-05 23:02 | ER Document Report ---
ED General - General Chief Complaint: Nausea/Vomiting Stated Complaint: NAUSEA COUGH Time Seen by Provider: 12/05/19 22:26 Primary Care Provider: MARTHA PIPER DO [Primary Care Provider] - Follow up as needed Mode of Arrival: Ambulatory Notes: note per Pat This 19-year-old healthy female nontoxic looking, laughing and smiling presents to the emergency department with reports of cold symptoms, virus on and off for the past couple months. She reports she is vomiting now sometimes twice a day for the past 4 days. Reports her abdomen is hurting but she just started her menses. Denies fever. Patient reports she did receive her flu vaccine. Also complains of some ear pain and stuffy nose. 19-year-old black female arrives by POV with chief complaint of 2 weeks of having some nausea occasional vomiting and some lightheadedness and low blood sugars. Patient reports the entire family has had upper respiratory infections to include stepfather with influenza grandfather with a cold father sister and brothers all with URIs it lasted between 1 to 4 days. Patient denies any dysuria or . She reports her menstrual flow began today. Patient denies any cephalgia or nuchal rigidity or hemoptysis or abdominal pain. Patient denies any dysuria. Patient reports she usually gets sinus infections least once a month. When she takes erythromycin she has vomiting and when she t akes Augmentin or amoxicillin she breaks out in a diffuse rash. Also patient advises that using steroid pill induces allergy as well as a cream form on her skin. She also reports when she is in the sunshine she gets a blister type rash over her skin. She denies any history of porphyria but several members of the family also allergic to nicotine whether chewed or smelled or smoked. TRAVEL OUTSIDE OF THE [place] IN LAST 30 DAYS: No - Related Data Allergies/Adverse Reactions: erythromycin base [Erythromycin Base] Allergy (Mild, Verified 08/11/19 14:12) VOMITING amoxicillin trihydrate [From Augmentin] Adverse Reaction (Intermediate, Verified 08/11/19 14:12) numb Potassium Clavulanate * [From Augmentin] Adverse Reaction (Intermediate, Verified 08/11/19 14:12) numb aspirin [Aspirin] Adverse Reaction (Verified 08/11/19 14:12) steroids Allergy (Mild, Uncoded 08/11/19 14:12) rash Past Medical History - General Information source: Patient - Social History Smoking Status: Never Smoker Cigarette use (# per day): No Chew tobacco use (# tins/day): No Smoking Education Provided: No Frequency of alcohol use: None Drug Abuse: None Lives with: Family Family History: CAD, COPD, CVA, DM, Hyperlipidemia, Hypertension Patient has suicidal ideation: No Patient has homicidal ideation: No Pulmonary Medical History: Reports: Hx Asthma Neurological Medical History: Reports: Hx Migraine. Denies: Hx Cerebrovascular Accident, Hx Seizures Renal/ Medical History: Denies: Hx Peritoneal Dialysis Musculoskeletal Medical History: Reports Hx Musculoskeletal Deformity Psychiatric Medical History: Reports: Hx Anxiety, Hx Bipolar Disorder, Hx Depression Past Surgical History: Reports: Hx Breast Surgery - reduction, Hx Nose Surgery - Sinus surgery, Hx Tonsillectomy - Immunizations Immunizations up to date: Yes Hx Diphtheria, Pertussis, Tetanus Vaccination: Yes Review of Systems - Review of Systems Constitutional: See HPI, Malaise, Weakness EENT: No symptoms reported Cardiovascular: No symptoms reported Respiratory: No symptoms reported Gastrointestinal: See HPI, Nausea, Vomiting Genitourinary: No symptoms reported Female Genitourinary: No symptoms reported Musculoskeletal: No symptoms reported Skin: No symptoms reported Hematologic/Lymphatic: No symptoms reported Neurological/Psychological: No symptoms reported Physical Exam - Vital signs Vitals: Temp Pulse Resp BP Pulse Ox 98.2 F 63 18 152/94 H 98 12/05/19 22:09 12/05/19 22:09 12/05/19 22:09 12/05/19 22:09 12/05/19 22:09 - General General appearance: Appears well In distress: None - HEENT Head: Normocephalic Eyes: Normal Conjunctiva: Normal Cornea: Normal Extraocular movements intact: Yes Eyelashes: Normal Pupils: PERRL Ears: Normal External canal: Normal Tympanic membrane: Normal Sinus: Abnormal, Frontal, Maxillary Nasal: Purulent discharge, Swelling, Clear rhinorrhea Pharynx: Normal Neck: Normal - Respiratory Respiratory status: No respiratory distress Chest status: Nontender Breath sounds: Normal Chest palpation: Normal - Cardiovascular Rhythm: Regular Heart sounds: Normal auscultation Murmur: No Friction rub: No Norma's crunch: No - Abdominal Inspection: Normal Distension: No distension Bowel sounds: Normal Tenderness: Nontender Organomegaly: No organomegaly - Back Back: Normal - Extremities General upper extremity: Normal inspection General lower extremity: Normal inspection - Neurological Neuro grossly intact: Yes Cognition: Normal Orientation: AAOx4 Abby Coma Scale Eye Opening: Spontaneous Abby Coma Scale Verbal: Oriented [place] Coma Scale Motor: Obeys Commands Abby Coma Scale Total: 15 Speech: Normal Cranial nerves: Normal Cerebellar coordination: Normal Motor strength normal: LUE, RUE, LLE, RLE - Psychological Associated symptoms: Normal affect - Skin Skin Temperature: Warm Skin Moisture: Dry Course - Vital Signs Vital signs: Temp Pulse Resp BP Pulse Ox 98.2 F 63 18 129/81 H 98 12/05/19 22:09 12/06/19 00:49 12/05/19 22:09 12/06/19 00:49 12/05/19 22:09 - Laboratory Result Diagrams: 12/05/19 22:40 12/05/19 22:40 Laboratory results interpreted by me: 12/05/19 12/05/19 12/05/19 22:40 22:40 22:40 Plt Count 479 H Total Protein 8.7 H Urine Protein 30 H Urine Blood LARGE H Critical Care Note - Critical Care Note Total time excluding time spent on procedures (mins): 90 Comments: Patient requests some nausea medicine prior to going home. 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
[2019-12-05 23:05] LABS: ABSOLUTE EOSINOPHILS # (AUTO) 0.1 10^3/uL (0.0-0.6); ABSOLUTE LYMPHOCYTES (AUTO) 3.1 10^3/uL (0.5-4.7); ABSOLUTE MONOCYTES (AUTO) 0.4 10^3/uL (0.1-1.4); ABSOLUTE NEUT (AUTO) 3.2 10^3/uL (1.7-8.2); BASOPHILS % (AUTO) 0.4 % (0-2); HEMATOCRIT 39.7 % (36.0-47.0); HEMOGLOBIN 13.5 g/dL (12.0-15.5); LYMPHOCYTES % (AUTO) 44.6 % (13-45); MEAN CORPUSCULAR VOLUME 85 fl (80-97); MONOCYTES % (AUTO) 6.1 % (3-13); PLATELET COUNT 479 10^3/uL (150-450); RED BLOOD COUNT 4.66 10^6/uL (3.72-5.28); RED CELL DISTRIBUTION WIDTH 13.4 % (11.5-14.0); SEGMENTED NEUTROPHILS % (AUTO) 46.9 % (42-78); TOTAL CELLS COUNTED % (AUTO) 100 %; WHITE BLOOD COUNT 6.9 10^3/uL (4.0-10.5)
[2019-12-05 23:21] LABS: ALBUMIN 4.7 g/dL (3.5-5.0); ALKALINE PHOSPHATASE 69 U/L (38-126); ANION GAP 10 (5-19); ASPARTATE AMINO TRANSFERASE 30 U/L (14-36); BILIRUBIN,DIRECT 0.3 mg/dL (0.0-0.4); BILIRUBIN,TOTAL 0.3 mg/dL (0.2-1.3); BLOOD UREA NITROGEN 10 mg/dL (7-20); CARBON DIOXIDE 28 mmol/L (22-30); CHLORIDE 101 mmol/L (98-107); GLUCOSE 92 mg/dL (75-110); POTASSIUM 4.3 mmol/L (3.6-5.0); TOTAL PROTEIN 8.7 g/dL (6.3-8.2)
[2019-12-05 23:44] LABS: APPEARANCE,URINE TURBID; BILIRUBIN,URINE NEGATIVE (NEGATIVE); COLOR,URINE AMBER; GLUCOSE, URINE NEGATIVE (NEGATIVE); KETONES,URINE NEGATIVE (NEGATIVE); LEUKOCYTE ESTERASE,URINE NEGATIVE (NEGATIVE); NITRITE,URINE NEGATIVE (NEGATIVE); PROTEIN,URINE 30 mg/dL (NEGATIVE); URINE SPECIFIC GRAVITY 1.024; UROBILINOGEN,URINE NEGATIVE mg/dL (<2.0)
[2019-12-06 01:18] LABS: A TYPE INFLUENZA AG NEGATIVE (NEGATIVE); B INFLUENZA AG NEGATIVE (NEGATIVE)
[2019-12-06] MEDS ORDERED: ONDANSETRON ODT 4 MG TAB (6 TAB/ER DISP) PO PRN (02:04)
[2019-12-06 02:28] VITALS: BP 136/80
== END 2019-12-06 02:20 | disposition home or self-care (01) ==
LOC: ER 21:54
DX: J01.91 Acute recurrent sinusitis, unspecified (principal); I10 Essential (primary) hypertension; R11.2 Nausea with vomiting, unspecified; R05 Cough; Z88.3 Allergy status to other anti-infective agents
CPT/HCPCS: 99285; 36415; 83690; 84703; 85025; 86308; 80053; 81001; 87804; S0119

== ENCOUNTER 2020-08-08 17:42 | Emergency (ER) | payer BC ==
[2020-08-08] MEDS ORDERED: HYDROCODONE/ACETAMINOPHEN 5-325 MG TABLET PO ONE (20:25)
--- NOTE | 2020-08-08 20:30 | ER Document Report ---
ED General - General Chief Complaint: Sore Throat Stated Complaint: SORE THROAT,NAUSEA,DIARRHEA Time Seen by Provider: 08/08/20 19:16 Primary Care Provider: MARTHA PIPER DO [Primary Care Provider] - Follow up as needed Mode of Arrival: Ambulatory Information source: Patient Notes: Patient is a 19-year-old -[place] female coming in today with chief complaint of frontal headache and sore throat. Mom and dad in the same home tested positive for strep throat. Denies nausea and vomiting. TRAVEL OUTSIDE OF THE [place] IN LAST 30 DAYS: No - Related Data Allergies/Adverse Reactions: erythromycin base [Erythromycin Base] Allergy (Mild, Verified 08/11/19 14:12) VOMITING amoxicillin trihydrate [From Augmentin] Adverse Reaction (Intermediate, Verified 08/11/19 14:12) numb Potassium Clavulanate * [From Augmentin] Adverse Reaction (Intermediate, Verified 08/11/19 14:12) numb aspirin [Aspirin] Adverse Reaction (Verified 08/11/19 14:12) steroids Allergy (Mild, Uncoded 08/11/19 14:12) rash Home Medications: clonidine, claritin, singulair Past Medical History - Social History Smoking Status: Never Smoker Chew tobacco use (# tins/day): No Frequency of alcohol use: None Drug Abuse: None Family History: CAD, COPD, CVA, DM, Hyperlipidemia, Hypertension Pulmonary Medical History: Reports: Hx Asthma Neurological Medical History: Reports: Hx Migraine. Denies: Hx Cerebrovascular Accident, Hx Seizures Renal/ Medical History: Denies: Hx Peritoneal Dialysis Musculoskeletal Medical History: Reports Hx Musculoskeletal Deformity Psychiatric Medical History: Reports: Hx Anxiety, Hx Bipolar Disorder, Hx Depression Past Surgical History: Reports: Hx Breast Surgery - reduction, Hx Nose Surgery - Sinus surgery, Hx Tonsillectomy - Immunizations Immunizations up to date: Yes Hx Diphtheria, Pertussis, Tetanus Vaccination: Yes Review of Systems - Review of Systems Notes: Constitutional: No fevers. No chills. EENT: No eye redness. No eye pain. No ear pain. +sore throat. Cardiovascular: No chest pain. No palpitations. Respiratory: No cough. No shortness of breath. No respiratory distress. Gastrointestinal: No abdominal pain. No nausea, vomiting, or diarrhea. Genitourinary: Atraumatic. No lesions. No pain. No discharge. Musculoskeletal: Atraumatic. No swelling. No deformities. Skin: No rash or lesions. Lymphatic: No swollen lymph nodes. Neurologic: +headache. No syncope. Psychiatric: No suicidal or homicidal ideation. Physical Exam - Vital signs Vitals: Temp Pulse Resp BP Pulse Ox 99 F 83 16 134/59 H 98 08/08/20 18:20 08/08/20 18:20 08/08/20 18:20 08/08/20 18:20 08/08/20 18:20 - Notes Notes: General: Well-developed, well-nourished. In no acute distress. Non-toxic appearing. Cardiac: Well-perfused. Regular rate and rhythm. No murmurs, rubs, or gallops. Pulmonary: No respiratory distress. No cyanosis. Bilateral lung fiels are clear to auscultation. Abdominal: Non-distended. Non-rigid. Bowels sounds are present in all four quadrants. No guarding or rebound. HEENT: Head is atraumatic. Conjunctivae not reddened. No tearing. PERRL. EOMI. Orbits atraumatic. No periorbital swelling or erythema. Oropharynx is without erythema, swelling, or exudates. Frontal maxillary sinus tenderness Neck: Supple. No adenopathy. No meningismus. Dermatologic: Warm with good turgor. No rash. Atraumatic. Chest: Atraumatic. No chest wall tenderness to palpation. Musculoskeletal: Moves all extremities well. No range of motion deficits. no muscular or joint tenderness. No paraspinal muscle tenderness. no midline spinal tenderness or step-off. Genitourinary: Examination deferred Neurologic: No gross neurologic deficits. Psychiatric: Normal mood. Course - Re-evaluation Re-evalutation: 08/08/20 20:28 Rapid strep is negative. Sinuses tender. With history of sore throat, reported fever, AND multiple positive strep patients in the home will treat empirically for strep throat - Vital Signs Vital signs: Temp Pulse Resp BP Pulse Ox 99 F 83 16 134/59 H 98 08/08/20 18:20 08/08/20 18:20 08/08/20 18:20 08/08/20 18:20 08/08/20 18:20 Discharge - Discharge Clinical Impression: Sore throat, Sinus headache Condition: Good Disposition: HOME, SELF-CARE Instructions: Sore Throat ([facility]) Prescriptions: Cephalexin Monohydrate [Keflex 500 mg Capsule] 500 mg PO TID 5 Days #21 capsule Referrals: MARTHA PIPER DO [Primary Care Provider] - Follow up as needed
[2020-08-08 20:32] VITALS: BP 147/76
== END 2020-08-08 20:54 | disposition home or self-care (01) ==
LOC: ER 17:42
DX: R51.9 Headache, unspecified (principal); J02.9 Acute pharyngitis, unspecified; J45.909 Unspecified asthma, uncomplicated; Z20.818 Contact with and (suspected) exposure to other bacterial communicable diseases; Z79.899 Other long term (current) drug therapy; Z88.1 Allergy status to other antibiotic agents; Z88.0 Allergy status to penicillin; Z88.8 Allergy status to other drugs, medicaments and biological substances
CPT/HCPCS: 87070; 87880; 99283